=== PATIENT | male | born 1960 | race Caucasian/White ===

== ENCOUNTER 2016-06-09 13:00 | Emergency (ER) | payer MEDICARE ==
[2016-06-09 15:13] VITALS: BP 184/84
--- NOTE | 2016-06-09 15:17 | ERNOTE ---
Trauma/Assault HPI - Narrative Date of Service: 06/09/16 - General Stated Complaint: FALL-HIP AND SHOULDER PAIN Time Seen by Provider: 06/09/16 14:03 Source: patient Exam Limitations: no limitations - Immun/Allergies/Home Medications Immunizations: IMMUNIZATION HX Immunizations Up to Date Yes History of Influenza Vaccine No Allergies/Adverse Reactions: Allergies No Known Allergies Allergy (Verified 06/09/16 13:16) Home Medications: HOME MEDICATIONS Unobtainable 06/09/16 [Last Taken Unknown] - History of Present Illness Narrative: Patient presents to the ED after a fall Wednesday. He relates he fell off a ladder approx. 4 feet. Landed on outstretched right arm. Pain anterior right shoulder. He relates the main reason he came in was for pain anterior right shoulder. He also relates chronic pain right hip since a hip replacement and that this also sustained a direct blow. Pain right hip and right shoulder. Denies other injuries. Relates occasional tingling right arm. No CP or SOB, no abdominal pain. No LOC. Denies other injuries. Location Occurred: Reports: other - patient retired. Pain Location: Reports: other - right shoulder and right hip Method of Injury: Reports: fall Severity: other - moderate at rest Modifying Factors - (Improves): Reports: rest Modifying Factors - (Worsens): Reports: movement Loss of Consciousness: Reports: no loss of consciousness Associated Symptoms - Trauma: Denies: headache, chest pain, shortness of breath , abdominal pain Review of Systems - Review of Systems Constitutional: Absent: fever Respiratory: Absent: shortness of breath Cardiology: Absent: chest pain Gastrointestinal/Abdominal: Absent: abdominal pain Neurological: Absent: weakness - Patient's Past Medical History Patient History - Medical: Anxiety, Chronic Pain, Other Patient History - Cardiac/Respiratory: Hypertension, Sleep Apnea Patient History - Cancer: No Hx of Cancer Patient History - Surgical Procedures: Colonoscopy, Total Hip Replacement Patient History - Other: None - Family History Mother Family History - Cardiac/Respiratory: Myocardial Infarction Father Family History - Medical: No pertinent hx Family History - Cardiac/Respiratory: No pertinent hx - Social History Living Situations: home Abuse History: No History of abuse Psych History: No pertinent hx Alcohol Use: occasionally Drug Use: marijuana - Immunizations Immunizations Up to Date: Yes History of Influenza Vaccine: No Physical Exam - Physical Exam General Appearance: Present: alert, no apparent distress Eye Exam: Normal inspection: bilateral, PERRL: bilateral Ears, Nose, Throat: Present: normal ENT inspection, other - no findings of head injury. Neck: Present: normal inspection, other - There is no tenderness posterior cervical spine. No midline pain or tenderness. Mild muscular tenderness right trapezius . No spinal tendenres or pain.. Absent: tender posterior midline Respiratory: Present: no respiratory distress, normal breath sounds, no accessory muscle use, lungs clear Cardiovascular/Chest: Present: regular rate, rhythm, normal peripheral pulses Peripheral Pulses: N=norm/S=strong/W=weak/B=bound/A=absent: Radial (R): Normal Gastrointestinal/Abdominal: Present: normal bowel sounds, nontender, nondistended, soft. Absent: tenderness Back Exam: Present: normal inspection, normal range of motion, no vertebral tenderness. Absent: vertebral tenderness, decreased range of motion Extremity Exam: Present: other - Tenderness right anterior shoulder. No clinical dislocation. Tenderness lateral right hip. No other bone tenderness noted on extremities. Mild reduced ROM at these sites d/t pain. Neurological Exam: Present: alert, no motor/sensory deficits, ophthalmologist retina specialist II-XII nml as tested, other - Exam somewhat limited by pain. No clear acute focal motor deficits. LT sensation intact. Skin Exam: Present: other - no laceration ED Progress - Vital Signs Patient's Vital Signs:: I have reviewed the patient's vital signs. Vital Signs: Vital Signs 06/09/16 06/09/16 13:12 13:18 Temperature 36.6 C Pulse Rate 56 L 56 L Respiratory 16 Rate Blood Pressure 151/71 O2 Sat by Pulse 99 Oximetry - X-Ray X-Ray #1 X-Ray: shoulder Interpretation: Reviewed by me X-ray Comments: I reviewed radiology report X-Ray #2 X-Ray: hip Interpretation: Reviewed by me X-ray Comments: I reviewed radiology report X-Ray #3 X-Ray: femur Interpretation: Reviewed by me X-ray Comments: I reviewed radiology report - Progress/Reassessment Chief Complaint: Fall Progress Note-Subjective: 06/09/16 15:14 I spoke with Dorothy Wolfe (ortho) regarding x-ray findings. He will see the patientin the office to discuss further testing, this was discussed with the patient. I discussed warning signs and reasons to return as well as the need for close f/u. Departure Clinical Impression: Musculoskeletal pain of extremity, Shoulder injury, Injury of hip - Departure Disposition: Home self-care Condition: Stable Instructions: Musculoskeletal Pain Additional Instructions: Rest. Ice. Call Ortho today for an appointment. I spoke with Cipriano Wolfe by phone today and they wish to see you in the office to discuss if any further evaluation will be necessary. Return for increased pain, numbness, tingling, weakness or if your condition worsens or changes in any way. Referrals: Oliver Herrera MD [Primary Care Provider] -
== END 2016-06-09 15:20 | disposition home or self-care (01) ==
LOC: ER 13:00
DX: M25.511 Pain in right shoulder (principal); S49.91XA Unspecified injury of right shoulder and upper arm, initial encounter; S79.911A Unspecified injury of right hip, initial encounter; W11.XXXA Fall on and from ladder, initial encounter

== ENCOUNTER 2017-02-11 12:45 | Emergency (ER) | payer MEDICARE ==
[2017-02-11 12:53] VITALS: BP 167/88
[2017-02-11] MEDS ORDERED: KETOROLAC TROMETHAMINE 60 MG/2 ML VIAL IM ONE ×2 (13:56→14:08)
[2017-02-11] MEDS ORDERED: ORPHENADRINE CITRATE 30 MG/ML VIAL IM ONE (13:56)
--- NOTE | 2017-02-11 14:00 | ERNOTE ---
Upper Extremity HPI - General Extremities Pain Location: shoulder: right Time Seen by Provider: 02/11/17 13:51 Source: patient Exam Limitations: no limitations - Immun/Allergies/Home Medications Immunizations: IMMUNIZATION HX Immunizations Up to Date Yes History of Influenza Vaccine No Allergies/Adverse Reactions: Allergies Allergy/AdvReac Type Severity Reaction Status Date / Time No Known Allergies Allergy Verified 02/11/17 12:53 Home Medications: HOME MEDICATIONS Cyclobenzaprine HCl [Flexeril] 10 mg PO TID PRN #30 tab 02/11/17 [Last Taken Unknown] Naproxen [Naprosyn] 500 mg PO BID #60 tablet 02/11/17 [Last Taken Unknown] - History of Present Illness Narrative: 2 days ago patient lifted a 5 gallon bucket of paint out of his car and put in his truck and he heard a pop in the right shoulder has had at least moderate pain since then. States that the shoulder was surgically repaired many years ago in [place], however he's been doing fairly well with it since the surgery. Had a previous rotator cuff surgery to that shoulder. Review of Systems - Review of Systems Constitutional: Present: See HPI EYE: Present: no symptoms reported ENT: Present: no symptoms reported Respiratory: Present: no symptoms reported Cardiology: Present: no symptoms reported Gastrointestinal/Abdominal: Present: no symptoms reported Genitourinary: Present: no symptoms reported Musculoskeletal: Present: See HPI, joint pain Skin: Present: no symptoms reported Neurological: Present: no symptoms reported Endocrine: Present: no symptoms reported Hematologic/Lymphatic: Present: no symptoms reported Psych: Present: no symptoms reported - Patient's Past Medical History Patient History - Medical: Anxiety, Chronic Pain, Other Patient History - Cardiac/Respiratory: Hypertension, Sleep Apnea Patient History - Cancer: No Hx of Cancer Patient History - Surgical Procedures: Colonoscopy, Total Hip Replacement, Orthopedic - apparent right rotator cuff Patient History - Other: None - Family History Mother Family History - Cardiac/Respiratory: Myocardial Infarction Father Family History - Medical: No pertinent hx Family History - Cardiac/Respiratory: No pertinent hx - Social History Living Situations: home Abuse History: No History of abuse Psych History: No pertinent hx Alcohol Use: none Drug Use: none - Immunizations Immunizations Up to Date: Yes History of Influenza Vaccine: No Physical Exam - Physical Exam General Appearance: Present: wd/wn, alert, moderate distress Head Exam: Present: normal inspection Eye Exam: Normal inspection: bilateral, PERRL: bilateral Ears, Nose, Throat: Present: normal ENT inspection, H, normal pharynx Neck: Present: normal inspection, nontender Respiratory: Present: no respiratory distress, normal breath sounds, no accessory muscle use, chest nontender, lungs clear Cardiovascular/Chest: Present: regular rate, rhythm, no murmur, normal peripheral pulses Gastrointestinal/Abdominal: Present: normal bowel sounds, nontender, nondistended, soft, no organomegaly Rectal Exam: Present: deferred Back Exam: Present: normal inspection, normal range of motion Extremity Exam: Present: no edema, decreased range of motion, other - while the patient appears to have some internal, external rotation of the right shoulder as well as some abduction, he does so with apparent pain Neurological Exam: Present: alert, oriented, normal mood/affect Skin Exam: Present: normal color, warm/dry Lymphatic Exam: Present: no adenopathy ED Progress - Vital Signs Patient's Vital Signs:: I have reviewed the patient's vital signs. Vital Signs: Vital Signs 02/11/17 12:47 Temperature 36.3 C L Pulse Rate 73 Respiratory 12 Rate Blood Pressure 167/88 O2 Sat by Pulse 95 Oximetry - X-Ray X-Ray #1 X-Ray: shoulder Interpretation: Reviewed by me - Progress/Reassessment Chief Complaint: Shoulder Injury/Pain Plan - Plan Plan: Patient appears to have a rotator cuff strain on the right side. He'll be started on Flexeril and Naprosyn and be given the name of the on-call orthopedist. He was also instructed to follow-up with his family physician. Departure Clinical Impression: Musculoskeletal pain of extremity Shoulder injury Qualifiers: Encounter type: initial encounter Laterality: right Qualified Code(s): S49.91XA - Unspecified injury of right shoulder and upper arm, initial encounter Rotator cuff (capsule) sprain Qualifiers: Encounter type: initial encounter Laterality: right Qualified Code(s): S43.421A - Sprain of right rotator cuff capsule, initial encounter - Departure Disposition: Home self-care Condition: Good Instructions: Rotator Cuff Injury Referrals: You Pimentel DO [Primary Care Provider] - Adiel Sanches MD [Staff Physician] - Prescriptions: Cyclobenzaprine HCl [Flexeril] 10 mg PO TID PRN #30 tab PRN Reason: MUSCLE SPASMS Naproxen [Naprosyn] 500 mg PO BID #60 tablet
[2017-02-11] MEDS ORDERED: ORPHENADRINE CITRATE 30 MG/ML VIAL ONE (14:08)
== END 2017-02-11 15:00 | disposition home or self-care (01) ==
LOC: ER 12:45
DX: M25.511 Pain in right shoulder (principal); S49.91XA Unspecified injury of right shoulder and upper arm, initial encounter; S43.421A Sprain of right rotator cuff capsule, initial encounter; X58.XXXA Exposure to other specified factors, initial encounter; Y93.89 Activity, other specified

== ENCOUNTER 2020-01-31 00:13 | Observation (INO) ==
[2020-01-31] MEDS ORDERED: ONDANSETRON HCL/PF 2 MG/ML VIAL IV ONE ×2 (00:33→01:59)
[2020-01-31] MEDS ORDERED: NORMAL SALINE 1,000 ML IV ONE ×2 (00:34→05:02)
--- NOTE | 2020-01-31 00:38 | ERNOTE ---
Abdominal HPI - General Chief Complaint: Abdominal Pain Time Seen by Provider: 01/31/20 00:29 Source: patient Exam Limitations: no limitations - Immun/Allergies/Home Medications Immunizatons: IMMUNIZATION HX Immunizations Up to Date Yes History of Influenza Vaccine Yes Hx Pneumococcal Vaccination No Allergies/Adverse Reactions: Allergies No Known Allergies Allergy (Verified 07/17/19 14:35) Home Medications: HOME MEDICATIONS Valsartan 320 mg PO DAILY 05/25/17 [Last Taken Unknown] Aspirin [Aspirin EC] 81 mg PO DAILY #60 tablet. 05/26/17 [Last Taken Unknown] Omeprazole [Prilosec] 20 mg PO BID #60 cap 05/26/17 [Last Taken Unknown] Metoprolol Tartrate [Lopressor] 25 mg PO DAILY 01/31/20 [Last Taken Unknown] Rivaroxaban [Xarelto] 2.5 mg PO DAILY 01/31/20 [Last Taken Unknown] - History of Present Illness Narrative: Patient states he has had increasing abdominal pain nausea and vomiting for 2 days. He states he has not been able to hold anything down for that amount of time. He did have laparoscopic cholecystectomy approximately a month ago and then had a skin infection at the operation site but this is been resolved for approximately a week Timing: getting worse Quality: moderate, severe, cramping Activities at Onset: none Modifying Factors - (Worsens): Present: vomiting Prior Treatment: Present: recently seen, treated by physician Review of Systems - Review of Systems Constitutional: Absent: recent illness, fever, chills ENT: Absent: nose congestion, nasal drainage Respiratory: Absent: shortness of breath, cough Cardiology: Absent: chest pain, palpitations Gastrointestinal/Abdominal: Present: See HPI Genitourinary: Absent: dysuria Musculoskeletal: Absent: back pain, muscle pain Skin: Absent: rash Neurological: Absent: dizziness/light-headedness Endocrine: Absent: excessive sweating Medical History (Last Reviewed 01/31/20 @ 00:36 by Dg Olivarez DO) Afib HTN (hypertension) Surgical History: Surgical History (Last Reviewed 01/31/20 @ 00:36 by Dg Olivarez DO) H/O cardiac radiofrequency ablation H/O shoulder surgery right History of hip surgery right Social History: (Last Reviewed 01/31/20 @ 00:36 by Dg Olivarez DO) Tobacco: Smoking Status: Former smoker Alcohol: alcohol intake frequency: holiday/special occasion Substance Use: substance use type: does not use, marijuana Physical Exam - Physical Exam General Appearance: Present: wd/wn, mild distress, lethargic Head Exam: Present: normal inspection, no evidence of injury Neck: Present: normal inspection, nontender, supple Respiratory: Present: no respiratory distress, normal breath sounds, lungs clear Cardiovascular/Chest: Present: regular rate, rhythm, no murmur Gastrointestinal/Abdominal: Present: nondistended, soft, tenderness - Epigastric and right upper quadrant, abnormal bowel sounds - Hypoactive. Absent: guarding, rebound Extremity Exam: Present: normal inspection, normal range of motion, no edema Neurological Exam: Present: alert, oriented, normal mood/affect, no motor/sensory deficits Skin Exam: Present: normal color, warm/dry Lymphatic Exam: Present: no adenopathy Progress - Results and Orders Patient's Lab Results:: I have reviewed the patient's lab results. Results and Orders: Laboratory Tests 01/31/20 01/31/20 01/31/20 00:40 00:40 00:40 WBC 11.2 H Hgb 15.6 Hct 47.0 Plt Count 246 Neutrophils % 78.0 H Sodium 137 Potassium 3.5 Chloride 101 Carbon Dioxide 27.5 BUN 20 D Creatinine 1.14 Random Glucose 184 H Lactic Acid, Venous 2.1 H Calcium 9.1 Total Bilirubin 0.5 AST 19 ALT 28 Amylase 35 Lipase 78 - Vital Signs Patient's Vital Signs:: I have reviewed the patient's vital signs. Vital Signs: Vital Signs 01/31/20 00:19 Temperature 36.0 C Pulse Rate 52 L Respiratory Rate 14 Blood Pressure 209/79 H O2 Sat by Pulse Oximetry 98 - Progress/Reassessment Chief Complaint: Abdominal Pain Progress Note-Subjective: 01/31/20 01:09 Patient has mildly elevated lactic acid but does not meet SIRS criteria so he does not meet sepsis criteria 01/31/20 04:17 Spoke with the patient about CT scan results and suggested admission for bowel rest and IV fluids patient agreed. Patient was feeling somewhat nauseous but did not want any further anti-nausea medications at this time. I spoke with Dr. Lee she agrees with admission NG tube n.p.o. and IV fluids. We will consult surgery in the morning 01/31/20 04:19 01/31/20 04:39 Patient initially did not tolerate NG tube placement Cetacaine spray will be used for comfort. patient is agreeable to trying again with Cetacaine spray. Departure Clinical Impression: Small bowel obstruction - Departure Disposition: Still a patient Condition: Fair
[2020-01-31 00:46] LABS: Hemoglobin 15.6 gm/dL (13.5-18.0); Mean Cell Volume 92.9 fl (78-100); Mean Corpuscular Hemoglobin 30.8 pg (27-31); Mean Corpuscular Hgb Conc 33.2 g/dl (32-36); Mean Platelet Volume 9.5 fl (8-11.3); Neutrophil # 8.7 K/mm3 (1.3-6.0); Platelet Count 246 K/mm3 (150-450); Red Blood Count 5.06 M/mm3 (4.7-6.0); Red Cell Distribution Width 12.1 % (11.5-14.0); White Blood Count 11.2 K/mm3 (4.0-10.5)
[2020-01-31 00:59] LABS: Albumin * 3.9 gm/dl (3.4-5.0); BUN/Creatinine Ratio 17.5 (9.0-21.6); Bilirubin, Total 0.5 mg/dL (0.0-1.1); Ca. Corrected For Albumin 8.9 mg/dL (8.4-10.2); Calcium * 9.1 mg/dL (7.9-10.9); Carbon Dioxide 27.5 mmol/L (24-32.6); Potassium 3.5 mmol/L (3.4-4.6); Total Protein 7.3 gm/dL (6.2-8.2)
[2020-01-31] MEDS ORDERED: DIATRIZOATE MEGLUMINE, SODIUM 30 ML BTL PO ONE (01:27)
[2020-01-31 04:14] LABS: Urine Bilirubin Negative (NEGATIVE); Urine Blood Negative /ul (NEGATIVE); Urine Ketone Negative (NEGATIVE); Urine Nitrite Negative (NEGATIVE); Urine Protein Negative (NEGATIVE); Urine Urobilinogen Normal (NORMAL)
[2020-01-31 04:34] LABS: Urine Appearance Clear (CLEAR); Urine Color Yellow
[2020-01-31] MEDS ORDERED: TETRACAINE/BENZOCAINE/BUTAMBEN 56 SPRAY BTL TP ONE (04:34)
[2020-01-31 04:35] LABS: Urine Bacteria None Seen; Urine RBC None Seen /hpf (0-5); Urine WBC None Seen /hpf (0-5)
[2020-01-31] MEDS ORDERED: TETRACAINE/BENZOCAINE/BUTAMBEN 20 SPRAY BTL TP PRN (04:46)
[2020-01-31] MEDS ORDERED: PROCHLORPERAZINE EDISYLATE 5 MG/ML VIAL IV PRN (05:02)
[2020-01-31] MEDS ORDERED: KETOROLAC TROMETHAMINE 15 MG/ML VIAL IV ONE (05:47)
[2020-01-31] MEDS: LISINOPRIL 40 MG TABLET PO SCH (10:51)
[2020-01-31] MEDS: METOPROLOL TARTRATE 25 MG TABLET PO SCH ×2 (10:52→20:30)
--- NOTE | 2020-01-31 11:10 | HP ---
Chief Complaint - Chief Complaint Date of Service: 01/31/20 Time of Service: 10:37 Chief Complaint: Nausea, vomiting and abdominal pain x2 days History of Present Illness: 59-year-old male with a past medical history of atrial fibrillation on anticoagulation, hypertension, cholecystectomy presents from home with complaints of nausea, vomiting and upper abdominal pain for the past 2 days. He was found to have hypertension of 209/79, lactic acid 2.1, mild leukocytosis at 11.2, abdominal x-ray showed nonobstructive bowel gas pattern, no free air. CT abdomen pelvis was positive for developing small bowel obstruction versus posto perative ileus, no pneumatosis or portal venous gas, no free air, no evidence of appendicitis, no evidence of abscess. Chest x-ray showed satisfactory positioning of the enteric tube. He was admitted for small bowel obstruction and NG tube was placed. Medical History (Last Reviewed 01/31/20 @ 07:14 by Tatyana Shrestha RN) Afib HTN (hypertension) Surgical History: Surgical History (Last Reviewed 01/31/20 @ 07:15 by Tatyana Shrestha RN) Cholecystectomy planned H/O cardiac radiofrequency ablation H/O shoulder surgery right History of hip surgery right Family History: Family History (Last Updated 01/31/20 @ 15:12 by Geeta Boothe MD) Other Family history non-contributory Social History: (Last Reviewed 01/31/20 @ 07:15 by Tatyana Shrestha RN) Tobacco: Smoking Status: Former smoker Alcohol: alcohol intake frequency: holiday/special occasion Substance Use: substance use type: does not use, marijuana Review Of Systems (GEN) - Review of Systems Generalized/Overall Review: Absent: Fever EENTM: Present: Throat Pain Respiratory: Absent: Shortness of Breath Cardiac: Absent: Chest Pain Abdominal: Absent: Nausea, Vomiting, Abdominal Pain Misc: All systems neg except as marked Immunizations: IMMUNIZATION HX Immunizations Up to Date Yes History of Influenza Vaccine Yes Hx Pneumococcal Vaccination No Allergies/Adverse Reactions: Allergies Allergy/AdvReac Type Severity Reaction Status Date / Time No Known Allergies Allergy Verified 07/17/19 14:35 Home Medications: HOME MEDICATIONS Aspirin [Aspirin EC] 81 mg PO DAILY #60 tablet. 05/26/17 [Last Taken Unknown] Lisinopril [Zestril] 40 mg PO DAILY 01/31/20 [Last Taken Unknown] Metoprolol Tartrate [Lopressor] 25 mg PO BID 01/31/20 [Last Taken Unknown] Omeprazole 40 mg PO DAILY 01/31/20 [Last Taken Unknown] Rivaroxaban [Xarelto] 2.5 mg PO HS 01/31/20 [Last Taken Unknown] Exam - Exam Vital Signs: Vital Signs - Last Taken Temp 36.8 C 01/31/20 10:22 Pulse 65 01/31/20 10:52 Resp 14 01/31/20 10:22 BP 188/88 H 01/31/20 10:52 Pulse Ox 96 01/31/20 10:22 Constitutional: Present: Alert, Well developed, Well nourished, No distress, Middle aged, Obese ENT Exam: Present: hearing grossly normal Eye Exam: bilateral eye: normal inspection Neck: Present: non-tender, supple, normal inspection. Absent: lymphadenopathy ( R), lymphadenopathy (L) Back Exam: Present: normal inspection, no CVA tenderness, no vertebral tenderness Respiratory: Present: lungs clear, no respiratory distress, no accessory muscle use. Absent: crackles, rhonchi, wheezing Cardiovascular/Chest: Present: normal peripheral pulses, regular rate, rhythm, no edema, no murmur Peripheral Pulses: dorsalis-pedis (R): 1+, dorsalis-pedis (L): 1+ Abdomen: Present: Normal bowel sounds, soft, nontender Extremity: Present: no pedal edema Skin Exam: Present: normal color, warm/dry Neurologic: Present: alert, normal mood/affect Appearance: Present: appropriate appearance, appropriate insight Eye contact: Present: cooperative Thoughts: Present: normal thought pattern, normal mood /affect Diagnostic Studies: Abnormal Lab Results 01/31/20 01/31/20 01/31/20 Range/Units 00:40 00:40 00:40 WBC 11.2 H (4.0-10.5) K/mm3 Immature Gran # (Auto) 0.05 H (0.000-0.0310) K/mm3 Neutrophils % 78.0 H (42-75.0) % Lymphocytes % 13.9 L (20-51) % Neutrophils # 8.7 H (1.3-6.0) K/mm3 Random Glucose 184 H (70-110) mg/dL Lactic Acid, Venous 2.1 H (0.4-2.0) mmol/L 01/31/20 Range/Units 03:35 WBC (4.0-10.5) K/mm3 Immature Gran # (Auto) (0.000-0.0310) K/mm3 Neutrophils % (42-75.0) % Lymphocytes % (20-51) % Neutrophils # (1.3-6.0) K/mm3 Random Glucose (70-110) mg/dL Lactic Acid, Venous 2.7 H* (0.4-2.0) mmol/L Laboratory Results WBC 11.2 K/mm3 (4.0-10.5) H 01/31/20 00:40 RBC 5.06 M/mm3 (4.7-6.0) 01/31/20 00:40 Hgb 15.6 gm/dL (13.5-18.0) 01/31/20 00:40 Hct 47.0 % (42.0-52.0) 01/31/20 00:40 MCV 92.9 fl (78-100) 01/31/20 00:40 MCH 30.8 pg (27-31) 01/31/20 00:40 MCHC 33.2 g/dl (32-36) 01/31/20 00:40 RDW 12.1 % (11.5-14.0) 01/31/20 00:40 Plt Count 246 K/mm3 (150-450) 01/31/20 00:40 MPV 9.5 fl (8-11.3) 01/31/20 00:40 Immature Gran % (Auto) 0.40 % (0.001-0.429) 01/31/20 00:40 Immature Gran # (Auto) 0.05 K/mm3 (0.000-0.0310) H 01/31/20 00:40 Neutrophils % 78.0 % (42-75.0) H 01/31/20 00:40 Lymphocytes % 13.9 % (20-51) L 01/31/20 00:40 Monocytes % 5.2 % (0.0-9) 01/31/20 00:40 Eosinophils % 2.1 % (0.0-3.0) 01/31/20 00:40 Basophils % 0.4 % (0.0-1.0) 01/31/20 00:40 Nucleated RBC % 0.0 k/mm3 (0-1) 01/31/20 00:40 Neutrophils # 8.7 K/mm3 (1.3-6.0) H 01/31/20 00:40 Lymphocytes # 1.56 k/mm3 (1.5-3.5) 01/31/20 00:40 Monocytes # 0.6 k/mm3 (0.0-1.0) 01/31/20 00:40 Eosinophils # 0.2 k/mm3 (0.0-0.7) 01/31/20 00:40 Absolute Basophils 0.1 k/mm3 (0.0-0.1) 01/31/20 00:40 Sodium 137 mmol/L (132-142) 01/31/20 00:40 Plasma Sodium 138 mmol/L (130-142) 01/31/20 00:40 Potassium 3.5 mmol/L (3.4-4.6) 01/31/20 00:40 Chloride 101 mmol/L (97-106) 01/31/20 00:40 Carbon Dioxide 27.5 mmol/L (24-32.6) 01/31/20 00:40 Anion Gap 12.0 mmol/L (6.8-13.8) 01/31/20 00:40 BUN 20 mg/dL (6-23) D 01/31/20 00:40 Creatinine 1.14 mg/dL (0.4-1.4) 01/31/20 00:40 Est GFR (Non-Af Amer) 69 mL/min (60-130) 01/31/20 00:40 BUN/Creatinine Ratio 17.5 (9.0-21.6) 01/31/20 00:40 Random Glucose 184 mg/dL (70-110) H 01/31/20 00:40 Lactic Acid, Venous 2.7 mmol/L (0.4-2.0) H* 01/31/20 03:35 Calcium 9.1 mg/dL (7.9-10.9) 01/31/20 00:40 Calcium Adj for Albumin 8.9 mg/dL (8.4-10.2) 01/31/20 00:40 Total Bilirubin 0.5 mg/dL (0.0-1.1) 01/31/20 00:40 AST 19 U/L (0-48) 01/31/20 00:40 ALT 28 U/L (19-67) 01/31/20 00:40 Alkaline Phosphatase 64 U/L (50-170) 01/31/20 00:40 Total Protein 7.3 gm/dL (6.2-8.2) 01/31/20 00:40 Albumin 3.9 gm/dl (3.4-5.0) 01/31/20 00:40 Amylase 35 U/L (25-115) 01/31/20 00:40 Lipase 78 U/L (73-393) 01/31/20 00:40 Urine Color Yellow 01/31/20 04:10 Urine Appearance Clear (CLEAR) 01/31/20 04:10 Urine pH 7.0 pH (5.0-7.0) 01/31/20 04:10 Ur Specific [place] 1.010 SP.GR. (1.005-1.030) 01/31/20 04:10 Urine Protein Negative mg/dL (NEGATIVE) 01/31/20 04:10 Urine Glucose (UA) Negative mg/dL (NEGATIVE) 01/31/20 04:10 Urine Ketones Negative mg/dL (NEGATIVE) 01/31/20 04:10 Urine Blood Negative /ul (NEGATIVE) 01/31/20 04:10 Urine Nitrate Negative (NEGATIVE) 01/31/20 04:10 Urine Bilirubin Negative mg/dl (NEGATIVE) 01/31/20 04:10 Urine Urobilinogen Normal EU/dl (NORMAL) 01/31/20 04:10 Ur Leukocyte Esterase Negative /ul (NEGATIVE) 01/31/20 04:10 Urine RBC None seen /hpf (0-5) 01/31/20 04:10 Urine WBC None seen /hpf (0-5) 01/31/20 04:10 Ur Epithelial Cells None seen /hpf (0-5) 01/31/20 04:10 Urine Bacteria None seen (NONE) 01/31/20 04:10 Urine Culture Comments No culture indicated 01/31/20 04:10 Assessment/Plan - Narrative Narrative: 59-year-old male with a past medical history of atrial fibrillation on anticoagulation, hypertension, cholecystectomy presents from home with compl aints of nausea, vomiting and upper abdominal pain for the past 2 days. He was found to have hypertension of 209/79, lactic acid 2.1, mild leukocytosis at 11.2, abdominal x-ray showed nonobstructive bowel gas pattern, no free air. CT abdomen pelvis was positive for developing small bowel obstruction versus postoperative ileus, no pneumatosis or portal venous gas, no free air, no evidence of appendicitis, no evidence of abscess. Chest x-ray showed satisfactory positioning of the enteric tube. He was admitted for small bowel obstruction and NG tube was placed. Patient states he feels much better and denies nausea or abdominal pain. He complains that the NG tube is giving him a sore throat and is very uncomfortable. He would like it to be taken out. Plan #1 continue with NG tube, clamp for 1 hour to give him his blood pressure medications through the NG tube #2 surgery consulted #3 remain n.p.o. #4 abdominal flat and upright x-ray per Dr. Rivas request Patient is doing well and denies nausea, vomiting or abdominal pain. Abdominal x-ray shows contrast in the distal small bowel and into the colon. I will pull the NG tube and advance him to a clear liquid diet. Start his medications, stop IV fluids. Obtain CBC and CMP in the morning. - Assessment/Plan (1) Small bowel obstruction Problem: Acute (2) A-fib Problem: Acute Qualifiers: Atrial fibrillation type: unspecified chronic Qualified Code(s): I48.20 - Chronic atrial fibrillation, unspecified (3) Hypertension Problem: Acute Qualifiers: Hypertension type: essential hypertension Qualified Code(s): I10 - Essential (primary) hypertension
[2020-01-31] MEDS: ACETAMINOPHEN 500 MG TABLET PO PRN ×2 (15:18→19:32)
[2020-01-31] MEDS: ASPIRIN 81 MG TABLET.DR PO SCH (15:18)
[2020-01-31] MEDS ORDERED: BISACODYL 5 MG TABLET.DR PO ONE (16:43)
--- NOTE | 2020-01-31 16:59 | CONS ---
HPI - General Date of Service: 01/31/20 Source: patient, RN/MD, RN notes reviewed, old records Exam Limitations: no limitations - History of Present Illness Initial Comments: His abdomen apparently started feeling different on 01/27/2020. On Wednesday he was watching games and only ate junk food. He did not move his bowels Wednesday or Wednesday and on Wednesday the felt very bloated. On Wednesday he went to the bathroom to have a bowel movement thinking that would help. He had a small bowel movement, but it did not relieve the bloating. Then later on his abdomen "was on fire" And he started vomiting. He told his to bring him to the emergency room. He was found to have a mildly elevated white blood cell count and elevated lactic acid. Initial abdominal x-ray showed a nonobstructive bowel pattern, there was a fair amount of stool. CT scan of the abdomen and pelvis showed dilated proximal small bowel and smaller caliber distal small bowel suggesting possible ileus or developing obstruction. He was admitted. Nasogastric tube was placed with return of a large amount of green material. He stated he felt immediately better. A repeat flat and upright abdominal x-ray revealed passage of contrast into the colon. The NG tube was clamped for medication, which he tolerated. It was then removed, and he has tolerated clear liquids. Currently he states his abdomen is pain-free. It is no longer distended. He has not passed gas or moved his bowels even after the CT contrast. He states he is very hungry and wants to try real food His recent history is remarkable for a laparoscopic cholecystectomy performed at [facility] on 12/12/2019. Apparently after that he developed drainage of purulent material from the subxiphoid port. That has now resolved Allergies/Adverse Reactions: Allergies No Known Allergies Allergy (Verified 07/17/19 14:35) Home Medications: Home Medications Medication Instructions Recorded Last Taken Aspirin [Aspirin EC] 81 mg PO DAILY #60 tablet. 05/26/17 Unknown Lisinopril [Zestril] 40 mg PO DAILY 01/31/20 Unknown Metoprolol Tartrate [Lopressor] 25 mg PO BID 01/31/20 Unknown Omeprazole 40 mg PO DAILY 01/31/20 Unknown Rivaroxaban [Xarelto] 20 mg PO DAILY 01/31/20 Unknown Procedures Contrast arthrogram (02/10/08) Endoscopic polypectomy of large intestine (02/07/08) Excision of Left Ulna, Open Approach (01/03/16) Excision of hemorrhoids (02/07/08) Introduction of Anti-inflammatory into Joints, Percutaneous Approach (12/16/15) Introduction of Local Anesthetic into Joints, Percutaneous Approach (12/16/15) Other local excision or destruction of lesion or tissue of anus (02/07/08) Total hip replacement (05/08/13) Medications - Medications Current Medications: Current Medications Acetaminophen (Tylenol) 500 mg PO Q4H PRN PRN Reason: Mild pain (pain scale 1-3) Stop: 03/01/20 15:10 Last Admin: 01/31/20 15:18 Dose: 500 mg Documented by: Aspirin (Aspirin Enteric Coated) 81 mg PO DAILY KRYS Stop: 03/01/20 15:16 Last Admin: 01/31/20 15:18 Dose: 81 mg Documented by: Benzocaine/Butamben/Tetracaine HCl (Cetacaine) 1 spray TP PRN PRN PRN Reason: Pain Stop: 03/01/20 04:47 Last Admin: 01/31/20 08:20 Dose: 1 spray Documented by: Lisinopril (Zestril) 40 mg PO DAILY KRYS Stop: 03/01/20 10:31 Last Admin: 01/31/20 10:51 Dose: 40 mg Documented by: Metoprolol Tartrate (Lopressor) 25 mg PO BID KRYS Stop: 03/01/20 10:31 Last Admin: 01/31/20 10:52 Dose: 25 mg Documented by: Prochlorperazine Edisylate (Compazine) 5 mg IV Q6H PRN PRN Reason: Nausea Stop: 03/01/20 05:03 Last Admin: 01/31/20 05:40 Dose: 5 mg Documented by: Review of Systems - Review of Systems Generalized/Overall Review: Absent: Chills, Fever EENTM: Present: No Symptoms Reported, Other - Insert is sore from the nasogastric tube Respiratory: Absent: Cough, Shortness of Breath Cardiac: Absent: Chest Pain Abdominal: Present: Other - He has not passed gas or moved his bowels today. Absent: Nausea, Abdominal Pain Genitourinary: Present: No Symptoms Reported Musculoskeletal: Present: No Symptoms Reported Neurological: Present: Headache - He complains of a headache because of elevated blood pressure. No associated neurologic symptoms Skin: Present: No Symptoms Reported Endocrine: Present: No Symptoms Reported Physical Examination - Exam Vital Signs: Vital Signs - Last Taken Temp 36.4 C 01/31/20 13:46 Pulse 62 01/31/20 13:46 Resp 16 01/31/20 13:46 BP 163/74 H 01/31/20 13:46 Pulse Ox 97 01/31/20 13:46 O2 Oxygen Delivery Method Room Air Constitutional: Present: Alert, Oriented x3, Cooperative, No distress, Obese ENT Exam: Present: normal ENT inspection - Plethoric complexion Eye Exam: bilateral eye: normal inspection Neck: Present: full range of motion, normal inspection Respiratory: Present: no respiratory distress Cardiovascular/Chest: Present: regular rate, rhythm Abdomen: Present: soft, nontender, nondistended, other - He has a scab on the subxiphoid port site /Rectal: Present: Exam deferred Extremity: Present: normal range of motion Skin Exam: Present: other - Plethoric complexion Neurologic: 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: 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 II-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 nml as tested, normal cerebellar test, no motor/sensory deficits, alert, normal mood/affect, oriented x 3 Appearance: Present: appropriate appearance, appropriate insight, no memory impairment Eye contact: Present: cooperative, good eye contact, normal speech Thoughts: Present: normal thought pattern - Results and Findings: Lab/Microbiology results last 24 hrs: Abnormal/Pending Laboratory Last 24 HRS 01/31/20 01/31/20 01/31/20 15:28 03:35 00:40 WBC Immature Gran # (Auto) Neutrophils % Lymphocytes % Neutrophils # Random Glucose Lactic Acid, Venous 3.3 H* 2.7 H* 2.1 H 01/31/20 01/31/20 00:40 00:40 WBC 11.2 H Immature Gran # (Auto) 0.05 H Neutrophils % 78.0 H Lymphocytes % 13.9 L Neutrophils # 8.7 H Random Glucose 184 H Lactic Acid, Venous CT scan images and report reviewed. Recent flat and upright abdominal images and report reviewed. - Assessments/Findings (1) Small bowel obstruction Diagnosis(s): His presenting symptoms have resolved. His abdominal x-ray does show passage of contrast into the colon indicating that there is no longer small bowel obstruction. He has not had a bowel movement since the contrast administration however. He did tolerate clear liquids and states he is very hungry. The etiology of the abdominal distention and vomiting is unclear, as is the elevated lactic acid. Repeat laboratory studies have been ordered for tomorrow morning. Recommendation: Will administer Dulcolax p.o. and advance diet. Problem: Acute
[2020-01-31] MEDS ORDERED: RIVAROXABAN 20 MG TABLET PO SCH (21:00)
[2020-02-01 06:11] LABS: Hematocrit 44.5 % (42.0-52.0); Hemoglobin 14.5 gm/dL (13.5-18.0); Mean Cell Volume 93.9 fl (78-100); Mean Corpuscular Hemoglobin 30.6 pg (27-31); Mean Corpuscular Hgb Conc 32.6 g/dl (32-36); Mean Platelet Volume 9.4 fl (8-11.3); Neutrophil # 4.7 K/mm3 (1.3-6.0); Neutrophil % 56.7 % (42-75.0); Platelet Count 234 K/mm3 (150-450); Red Blood Count 4.74 M/mm3 (4.7-6.0); Red Cell Distribution Width 12.1 % (11.5-14.0); White Blood Count 8.2 K/mm3 (4.0-10.5)
[2020-02-01 06:40] LABS: Albumin * 3.4 gm/dl (3.4-5.0); Anion Gap 14.1 mmol/L (6.8-13.8); Bilirubin, Total 0.4 mg/dL (0.0-1.1); Ca. Corrected For Albumin 8.8 mg/dL (8.4-10.2); Calcium * 8.6 mg/dL (7.9-10.9); Carbon Dioxide 26.1 mmol/L (24-32.6); Potassium 4.2 mmol/L (3.4-4.6); Total Protein 6.4 gm/dL (6.2-8.2)
[2020-02-01 06:49] LABS: BUN/Creatinine Ratio 11.4 (9.0-21.6)
[2020-02-01] MEDS ORDERED: PANTOPRAZOLE SODIUM 40 MG TABLET.EC PO SCH (07:00)
[2020-02-01] MEDS: LISINOPRIL 40 MG TABLET PO SCH (08:09)
[2020-02-01] MEDS: METOPROLOL TARTRATE 25 MG TABLET PO SCH (08:09)
[2020-02-01] MEDS: ASPIRIN 81 MG TABLET.DR PO SCH (08:09)
--- NOTE | 2020-02-01 10:07 | DS ---
(1) Small bowel obstruction Problem: Acute (2) A-fib Problem: Chronic Qualifiers: Atrial fibrillation type: unspecified chronic Qualified Code(s): I48.20 - Chronic atrial fibrillation, unspecified (3) Hypertension Problem: Acute Qualifiers: Hypertension type: essential hypertension Qualified Code(s): I10 - Essential (primary) hypertension Hospital Course: 59-year-old male with a past medical history of atrial fibrillation on anticoagulation, hypertension, cholecystectomy presents from home with complaints of nausea, vomiting and upper abdominal pain for the past 2 days. He was found to have hypertension of 209/79, lactic acid 2.1, mild leukocytosis at 11.2, abdominal x-ray showed nonobstructive bowel gas pattern, no free air. CT abdomen pelvis was positive for developing small bowel obstruction versus postoperative ileus, no pneumatosis or portal venous gas, no free air, no evidence of appendicitis, no evidence of abscess. Chest x-ray showed satisfactory positioning of the enteric tube. He was admitted for small bowel obstruction and NG tube was placed. Patient is doing well and denies nausea, vomiting or abdominal pain. Repeat abdominal x-ray showed contrast in the distal small bowel and into the colon. NG tube was clamped for 3 hours and the patient did not develop any nausea v omiting or abdominal pain. The NG tube was pulled yesterday and he was advanced to a clear liquid diet then to a regular diet. He did well with oral intake. He was given some Dulcolax and subsequently had 5-6 bowel movements. He is stable to be discharged home today and will follow-up with me in the next 1 week. Procedures Performed: none Results and Findings: Lab Pending Results 01/31/20 00:40: WBC 11.2 H, RBC 5.06, Hgb 15.6, Hct 47.0, MCV 92.9, MCH 30.8, MCHC 33.2, RDW 12.1, Plt Count 246, MPV 9.5, Immature Gran % (Auto) 0.40, Immature Gran # (Auto) 0.05 H, Neutrophils % 78.0 H, Lymphocytes % 13.9 L, Monocytes % 5.2, Eosinophils % 2.1, Basophils % 0.4, Nucleated RBC % 0.0, Neutrophils # 8.7 H, Lymphocytes # 1.56, Monocytes # 0.6, Eosinophils # 0.2, Absolute Basophils 0.1 01/31/20 00:40: Sodium 137, Plasma Sodium 138, Potassium 3.5, Chloride 101, Carbon Dioxide 27.5, Anion Gap 12.0, BUN 20 D, Creatinine 1.14, Est GFR (Non-Af Amer) 69, BUN/Creatinine Ratio 17.5, Random Glucose 184 H, Calcium 9.1, Calcium Adj for Albumin 8.9, Total Bilirubin 0.5, AST 19, ALT 28, Alkaline Phosphatase 64, Total Protein 7.3, Albumin 3.9, Amylase 35, Lipase 78 01/31/20 00:40: Lactic Acid, Venous 2.1 H 01/31/20 03:35: Lactic Acid, Venous 2.7 H* 01/31/20 04:10: Urine Color Yellow, Urine Appearance Clear, Urine pH 7.0, Ur Specific [place] 1.010, Urine Protein Negative, Urine Glucose (UA) Negative, Urine Ketones Negative, Urine Blood Negative, Urine Nitrate Negative, Urine Bilirubin Negative, Urine Urobilinogen Normal, Ur Leukocyte Esterase Negative, Urine RBC None seen, Urine WBC None seen, Ur Epithelial Cells None seen, Urine Bacteria None seen, Urine Culture Comments No culture indicated 01/31/20 15:28: Lactic Acid, Venous 3.3 H* 02/01/20 06:10: WBC 8.2 D, RBC 4.74, Hgb 14.5, Hct 44.5, MCV 93.9, MCH 30.6, MCHC 32.6, RDW 12.1, Plt Count 234, MPV 9.4, Immature Gran % (Auto) 0.50 H, Immature Gran # (Auto) 0.04 H, Neutrophils % 56.7, Lymphocytes % 30.2, Monocytes % 8.6, Eosinophils % 3.4 H, Basophils % 0.6, Nucleated RBC % 0.0, Neutrophils # 4.7, Lymphocytes # 2.49, Monocytes # 0.7, Eosinophils # 0.3, Absolute Basophils 0.1 02/01/20 06:10: Sodium 142, Plasma Sodium 142, Potassium 4.2, Chloride 106, Carbon Dioxide 26.1, Anion Gap 14.1 H, BUN 12, Creatinine 1.05, Est GFR (Non-Af Amer) 76, BUN/Creatinine Ratio 11.4, Random Glucose 116 H D, Calcium 8.6, Calcium Adj for Albumin 8.8, Total Bilirubin 0.4, AST 18, ALT 26, Alkaline Phosphatase 56, Total Protein 6.4, Albumin 3.4 Discharge Location: Home Disposition: Home self-care Condition: Fair Discharge Activity: Activity as tolerated Discharge Diet: General/regular food Additional Patient Instructions (free text): Follow up with Dr. Boothe on 02-08-2020 at 2:30pm. Complete Home Medications List: Complete Home Medication List: Aspirin [Aspirin EC] 81 mg PO DAILY #60 tablet. 05/26/17 Lisinopril [Zestril] 40 mg PO DAILY 01/31/20 Metoprolol Tartrate [Lopressor] 25 mg PO BID 01/31/20 Omeprazole 40 mg PO DAILY 01/31/20 Rivaroxaban [Xarelto] 20 mg PO DAILY 01/31/20 Forms: Patient Portal Registration
[2020-02-01 10:43] VITALS: BP 125/70
== END 2020-02-01 11:28 | disposition home or self-care (01) ==
LOC: ER 00:13 → MS 00:13
PROVIDERS: ADMIT Internal Medicine; ATTEND Internal Medicine

== ENCOUNTER 2020-07-30 06:31 | Observation (INO) ==
[~2020-07-30 06:31] MED LIST: MORPHINE SULFATE 15 MG TABLET.SA PO PRN; ROPIVACAINE/CLONIDIN/KETOROLAC 50 ML SYRINGE IJ PRN; TRANEXAMIC ACID 1,000 MG in NORMAL SALINE 100 ML IV PRN; ceFAZolin SODIUM 1 GM VIAL IV PRN
[2020-07-30] MEDS ORDERED: PROPOFOL VIAL IV ONE (06:37)
[2020-07-30] MEDS ORDERED: MIDAZOLAM HCL/PF 5 MG/ML VIAL ONE (06:37)
[2020-07-30] MEDS ORDERED: BUPIVACAINE HCL/PF 10 ML VIAL ONE (06:37)
[2020-07-30] MEDS: RINGER'S SOLUTION,LACTATED 1,000 ML IV PRN ×2 (07:04→09:15)
--- NOTE | 2020-07-30 07:28 | ANES ---
Anesthesia Pre Procedure Eval Vitals/Labs: Last Vital Signs Temp 35.9 C L 07/30/20 06:35 Pulse 69 07/30/20 06:35 Resp 18 07/30/20 06:35 BP 144/63 07/30/20 06:35 Pulse Ox 97 07/30/20 06:35 HOME MEDICATIONS acetaminophen 325 mg tablet 650 mg PO Q6H PRN tab 05/15/20 [Last Taken Unknown] metoprolol tartrate 25 mg tablet 25 mg PO DAILY tab 05/15/20 [Last Taken Unknown] famotidine 40 mg tablet 40 mg PO DAILY #30 tab 06/12/20 [Last Taken Unknown] Aspirin 325 mg PO DAILY 07/30/20 [Last Taken Unknown] Allergies/Adverse Reactions: Allergies Allergy/AdvReac Type Severity Reaction Status Date / Time No Known Allergies Allergy Verified 07/30/20 06:48 - Planned Procedure Planned Procedure: Left Arthroplasty Total Hip Medication List Reviewed:: Yes Allergies Verified: Yes Medical History (Last Reviewed 07/30/20 @ 07:24 by Finesse Phipps CRNA) Afib HTN (hypertension) Surgical History (Last Reviewed 07/30/20 @ 07:24 by Finesse Phipps CRNA) H/O cardiac radiofrequency ablation H/O shoulder surgery right x 2 History of hip surgery right [facility]-Dr. Sanches Hx of cholecystectomy Family History (Last Reviewed 07/30/20 @ 07:25 by Finesse Phipps CRNA) Other Family history non-contributory - Family Anesthesia History Family History:: no untoward family reactions to anesthesia, no familial bleeding tendencies, no family history of clotting disorders, no family history of premature - Airway/Neck/Teeth Within Normal Limits:: Yes Teeth Condition: intact Neck Exam: full range of motion Mallampatti Score: 2 Thyromental (T-M) distance: > 6 cm Mandibulo Hyoid distance: > 3 cm - Respiratory Respiratory Physical: lungs clear Smoking Status: Former smoker - quit 40 years Sleep Apnea currently treated: No Sleep Apnea by current assessment: No - Cardiovascular Cardiac History: arrhythmia - afib, hypertension Tolerate Activity: Fair Heart Sounds: S1 & S2, Regular - Anesthesia Assessment and Plan ASA Class: PS, II Anesthesia Type Plan: Spinal
[2020-07-30] MEDS ORDERED: ceFAZolin SODIUM 1 GM VIAL ONE (07:30)
[2020-07-30] MEDS ORDERED: ROPIVACAINE/CLONIDIN/KETOROLAC 50 ML SYRINGE IJ ONE (07:30)
[2020-07-30] MEDS ORDERED: ISOPROPYL ALCOHOL 480 APPL BTL MC ONE (07:30)
[2020-07-30] MEDS ORDERED: DEXTROSE 5%-LACTATED RINGERS 1,000 ML IV PRN (10:21)
[2020-07-30] MEDS ORDERED: ACETAMINOPHEN 500 MG TABLET PO PRN (10:21)
[2020-07-30] MEDS ORDERED: ZOLPIDEM TARTRATE 5 MG TABLET PO PRN (10:21)
[2020-07-30] MEDS ORDERED: MAGNESIUM HYDROXIDE 30 ML UDC PO PRN (10:21)
[2020-07-30] MEDS ORDERED: diphenhydrAMINE HCL 50 MG/ML VIAL IV PRN (10:21)
[2020-07-30] MEDS ORDERED: ONDANSETRON HCL/PF 2 MG/ML VIAL IV PRN (10:21)
[2020-07-30] MEDS ORDERED: MAG HYDROX/ALUMINUM HYD/SIMETH 30 ML UDC PO PRN (10:21)
--- NOTE | 2020-07-30 10:21 | OR ---
Operative Report - Dictated Report Narrative: Date: 07/30/2020 Preoperative diagnosis: Left hip degenerative joint disease. Postoperative diagnosis: Left hip degenerative joint disease. Procedure: Left total hip arthroplasty. Surgeon: Adiel Sanches M.D. Maintenance Shop Laborer: Cipriano Wolfe PA-C (provided an essential set of skilled, educated and assisted with transfer, positioning, prepping, draping, manipulation, traction, irrigation, suturing, and placement of dressings all of which cannot be performed by the available surgical crew) Anesthesia: Spinal and local periarticular joint injection. Complications: None Specimens: Bone. Estimated blood loss: 150 milliliters. Retained implants: Depuy [place] size 5 femoral stem high offset. Size 52 millimeter outside diameter 3-hole Morrow Gription acetabular cup. 52 millimeter outside by 32 millimeter inside diameter highly cross-linked acetabular liner. 32 millimeter diameter + 5 millimeter cobalt chromium femoral head. Cancellous 6.5mm screw 30 millimeter length Indications: Mr. Looney is a 60-year-old gentleman who has had left hip pain and arthrosis for an extent amount of time. This patient was followed in my clinic for period of time with significant complaints of left hip pain consistent with arthritic changes. He failed conservative measures including but not limited to activity modification, passage of time, medications, and other conservative measures. Patient wished to proceed with surgical treatment. The risks, benefits, and alternatives were discussed in clinic. The risks of , blood clots, bleeding, infection, nerve/tendon blood vessel/ injury, malposition of components, dislocation and/or instability of joint, intraoperative fracture, postoperative limited range of motion, persistent pain, failure of components, and need for additional procedures. Patient wished to proceed. Consent was obtained after answering all questions. Procedure: After marking the correct extremity on the floor, the patient was taken to the operating room. A timeout was performed. IV antibiotics consisting of Ancef were administered prior to the procedure. A spinal anesthetic was induced by anesthesia. A Moore catheter was inserted. The patient was then transitioned to a lateral position on a well-padded pegboard. An axillary roll was placed. The head was in neutral position. The non- operative down leg was well-padded with SCD and BEBO hose in place. The arms were supported and padded to protect from any undue pressure on the bony prominences and nerves. A well-padded anterior and posterior pelvic and chest posts were secured in order to maintain a stable position of the pelvis. This was placed so that the pelvis was perpendicular to the floor. The body was in line with the pelvis. Once it was felt that we had protected all the bony prominences and the patient was well secured with a safety belt as well, the leg was pre-scrubbed with alcohol, prepped and draped in a standard sterile fashion. A standard anterior lateral hip incision was marked out over the greater trochanter. Ioban drapes were then placed. The skin incision was then made. Sharp dissection with a scalpel utilizing cautery for hemostasis was carried out down to the gluteus and iliotibial band fascia. This was split in line with the skin incision. The greater trochanter bursa was excised. The anterior and posterior margins of the abductor tendon were identified. The anterior 1/2-1/3 of the tendon was tagged and reflected off the greater trochanter leaving a sleeve of tendon for repair at the completion of the case. This exposed the underlying hip joint capsule. An inverted T-type capsulotomy was made extending this up to the brim of the acetabulum. Using Homans to assist with elevation of the soft tissues off the anterior, superior, and inferior aspects of the femoral neck, the hip was then placed in a figure 4 position and the femoral head was dislocated. With the leg in an externally rotated and adducted position, the cutting flag was utilized in order to ward for a standard femoral neck cut approximately a fingerbreadth above the level of the lesser trochanter. This was done with reference to pre-operative films and overall alignment. This was done while protecting the surrounding soft tissues with Homans. The femoral head was then removed and sized for guidance on preparation of the acetabulum. It was noted that there was loss of articular cartilage on both the femoral head and weightbearing portions of the acetabulum. We then returned the leg to the table and turned our attention to the acetabulum. While protecting the surrounding soft tissues, the labrum and remaining tissue in the fovea were excised using a scalpel and cautery. A series of reamers up to size 52 millimeter were utilized to prepare the acetabulum. The final reamer had good purchase and exposed the bleeding subchondral bone. The acetabulum was then thoroughly irrigated ensuring that all bony and cartilaginous materials were removed, and the final acetabular shell was impacted into place. This was placed in approximately 45 degrees of abduction and 20 degrees of anteversion utilizing the outrigger and body axis for alignment. This had a good press fit. 1 6.5mm cancellous screw was placed in the superior posterior quadrant of the acetabulum. The shell was then thoroughly irrigated and the final polyethylene was impacted into place ensuring that it seated completely. This was then protected with a sponge while we returned our attention to the femur. With the leg in a figure 4 position, utilizing Homans for soft tissue protection, a box cutting osteotome, followed by Garrick awl, followed by carolyn gregory reamers and broaches were utilized in order to prepare the femur. It was found that a size 5 broach gave good axial and rotational stability. The calcar reamer was utilized in order to clean up the cut edges. The proximal femur was visualized to ensure that there were no signs of fracture. A series of heads and necks were trialed. It was found that a high offset neck and a + 5 femoral head gave good overall stability. There was minimal longitudinal instability. With the leg in the position of sleep, the femoral head was well covered. Hip range of motion was able to reach full extension and external rotation to greater than 75 degrees prior to impingement along the posterior acetabulum. The hip was able to be flexed to greater than 90 degrees with internal rotation greater than 60 degrees prior to anterior impingement. The limb lengths were near equal based on comparison to the contralateral side and the prior placed limb length stitch. At this point it was felt these were the appropriately sized femoral components as well as neck and femoral head. The trial implants were removed. The femur was thoroughly irrigated. The final implants were impacted into place, and the hip was reduced. After ensuring that there was no damage to the proximal femur, the standard periarticular joint injection of ropivacaine, Toradol, and epinephrine were injected into the joint capsule and surrounding soft tissues. Anesthesia then administered intravenous tranexamic acid. The capsule was repaired with a single interrupted #1 Vicryl. The abductor tendon was repaired to the greater trochanter utilizing #5 Ethibond through drill holes. This was oversewn with #1 Vicryl. The fascia was closed with interrupted #1 Vicryl and #1 Stratafix barbed suture. The wounds were thoroughly irrigated as we closed in layers. The deep and subcutaneous fat layers were closed with 0 and 3-0 Vicryl respectively. The subcutaneous tissue was closed with a running 3-0 Vicryl and the skin jarad. All sponge, needle, blade, and instrument counts were correct prior to closing the wounds. Sterile dressings consisting of xeroform, 4 x 4's, and tape were applied. The patient was awoken and transferred to her hospital bed and then to the postanesthesia care unit in stable condition. Postoperative condition: The plan is to admit to the medical/surgical inpatient floor postoperatively. There will be a projected 1 to 3 day hospital stay. Postoperatively 24 hours of IV antibiotics, pain control, physical therapy, occupational therapy, and medical comanagement will be utilized. Patient will be weightbearing as tolerated with anterior hip precautions. Postoperative films will be obtained in the recovery room.
--- NOTE | 2020-07-30 10:42 | ANES ---
Post Anesthesia Discharge - Transfer of Care Transfer of Care handoff given to nurse: Yes - Discharge from PACU Discharge from PACU when meets criteria: Yes - Awake and comfortable.
--- NOTE | 2020-07-30 10:56 | ANES ---
Post Anesthesia Assessment - Vital Signs Vitals: Last Vital Signs Temp 36.5 C 07/30/20 10:30 Pulse 49 L 07/30/20 10:50 Resp 16 07/30/20 10:50 BP 119/60 07/30/20 10:50 Pulse Ox 98 07/30/20 10:50 Airway Patency: Normal - Mental Status Level Of Consciousness: Awake, Alert, Appropriate - Pain Level Pain Score: 0 - N/V Assessment Nausea/Vomiting Presence: None Dehydration:: No
[2020-07-30] MEDS: KETOROLAC TROMETHAMINE 15 MG/ML VIAL IV SCH ×2 (11:58→17:26)
[2020-07-30] MEDS: ceFAZolin SODIUM 1 GM in DEXTROSE 5 % IN WATER 100 ML IV SCH ×4 (11:58→17:27)
[2020-07-30] MEDS: oxyCODONE HCL/ACETAMINOPHEN 1 TAB TABLET PO PRN (15:52)
[2020-07-30] MEDS: MORPHINE SULFATE 2 MG/ML DISP.SYRIN IV PRN (16:51)
[2020-07-30] MEDS: MORPHINE SULFATE 15 MG TABLET.SA PO SCH (20:51)
[2020-07-30] MEDS ORDERED: SENNOSIDES/DOCUSATE SODIUM 1 TAB TABLET PO SCH (21:00)
[2020-07-31] MEDS: ceFAZolin SODIUM 1 GM in DEXTROSE 5 % IN WATER 100 ML IV SCH ×2 (00:04)
[2020-07-31] MEDS: oxyCODONE HCL/ACETAMINOPHEN 1 TAB TABLET PO PRN ×4 (00:52→15:38)
[2020-07-31] MEDS: KETOROLAC TROMETHAMINE 15 MG/ML VIAL IV SCH ×3 (05:38→11:29)
[2020-07-31 06:31] LABS: Anion Gap 10.3 mmol/L (6.8-13.8); BUN/Creatinine Ratio 10.3 (9.0-21.6); Calcium * 8.1 mg/dL (7.9-10.9); Carbon Dioxide 26.7 mmol/L (24-32.6); Estimated Creat Clear 71.6
[2020-07-31 06:54] LABS: Hematocrit 42.7 % (42.0-52.0); Hemoglobin 14.1 gm/dL (13.5-18.0); Mean Cell Volume 93.4 fl (78-100); Mean Corpuscular Hemoglobin 30.9 pg (27-31); Mean Platelet Volume 9.7 fl (8-11.3); Platelet Count 201 K/mm3 (150-450); Red Blood Count 4.57 M/mm3 (4.7-6.0); Red Cell Distribution Width 12.6 % (11.5-14.0); White Blood Count 8.5 K/mm3 (4.0-10.5)
[2020-07-31] MEDS: MORPHINE SULFATE 2 MG/ML DISP.SYRIN IV PRN (07:55)
[2020-07-31] MEDS: MORPHINE SULFATE 15 MG TABLET.SA PO SCH (08:49)
[2020-07-31] MEDS ORDERED: METOPROLOL TARTRATE 25 MG TABLET PO SCH (09:00)
[2020-07-31] MEDS ORDERED: FAMOTIDINE 20 MG TABLET PO SCH (09:00)
[2020-07-31] MEDS ORDERED: ENOXAPARIN SODIUM 40 MG/0.4 ML SYRG SC SCH (09:21)
--- NOTE | 2020-07-31 15:11 | DS ---
(1) Status post left hip replacement Problem: Acute Hospital Course: Mr. Looney was admitted to the floor after undergoing left total hip arthroplasty. Tolerated this well. Was admitted to the floor postoperatively for 24 hours of IV antibiotics, pain control, medical comanagement, and occupational and physical therapy. OT and PT were consulted to assist with activities of daily living and ambulation. Was made weightbearing as tolerated with range of motion as tolerated utilizing anterior hip precautions. Pain was initially controlled with IV regimen. This was transitioned to oral once tolerating a by mouth intake. Was resumed on home diet and medications. Had a Moore catheter inserted and the operating room which was discontinued on postoperative day 1. . Lovenox SCD and BEBO hose were utilized for DVT prophylaxis. Vital signs remained stable to the hospital course. Serial labs were obtained which showed a final hemoglobin of 14.1 grams. BMP was reviewed and was stable. Physical examination throughout the hospital course showed an extremity that had sensation that was intact to light touch, palpable pulses, a benign wound, motor intact to the toes, ankle, and knee. Once an oral pain regimen was tolerated and physical therapy goals were met, it was felt that they were stable for discharge to home. Instructions: Continue with weightbearing as tolerated and range of motion as tolerated utilizing anterior precautions. Keep surgical site clean and dry. If you note any drainage or for comfort you can cover with dry gauze and tape. Change every 2-3 days as needed. Continue with physical therapy. Resume home diet. Report any fever over 101.5 Fahrenheit, uncontrolled pain, increased drainage, foul odor of drainage, new or increased calf pain or shortness of breath, or any other significant complaints. A 325mg dialy aspirin will be started after finishing anticoagulation if not allergic. Continue with BEBO hose on the operative extremity until instructed otherwise. No driving until instructed otherwise. Follow up in approximately 10-14 days. Procedures Performed: see notes below List Procedures: Left total hip arthroplasty Results and Findings: Lab Pending Results 07/31/20 06:19: WBC 8.5, RBC 4.57 L, Hgb 14.1, Hct 42.7, MCV 93.4, MCH 30.9, MCHC 33.0, RDW 12.6, Plt Count 201, MPV 9.7 07/31/20 06:19: Sodium 141, Plasma Sodium 141, Potassium 4.0, Chloride 108 H, Carbon Dioxide 26.7, Anion Gap 10.3, BUN 10, Creatinine 0.97, Est GFR (Non-Af Amer) 83, BUN/Creatinine Ratio 10.3, Random Glucose 128 H, Calcium 8.1 Discharge Location: Home Disposition: Home self-care Condition: Good Discharge Activity: Activity as tolerated, Weight bearing, Other - Utilizing anterior hip precautions Discharge Diet: General/regular food Referrals: Geeta Boothe MD [Primary Care Provider] - Additional Patient Instructions (free text): Physical Therapy at [facility] outpatient rehab department on WednesdayAugust 02 at 2:00pm. Follow up Orthopedic office appointment on WednesdayAugust 13 at 1:15pm. Prescriptions (Any new or edited meds): Enoxaparin Sodium [Lovenox] 40 mg SC Q24H #7 disp.syrin Transmission Status: Pending to [facility] Morphine Sulfate [Ms Contin] 15 mg PO Q12H #20 tablet.sa Transmission Status: Sent to [facility] oxyCODONE HCL/ACETAMINOPHEN [Percocet 5 MG/325 MG] 2 tab PO Q4H PRN #56 tab PRN Reason: Moderate Pain (Pain Scale 4-6) Transmission Status: Sent to [facility] Complete Home Medications List: Complete Home Medication List: acetaminophen 325 mg tablet 650 mg PO Q6H PRN tab 05/15/20 metoprolol tartrate 25 mg tablet 25 mg PO DAILY tab 05/15/20 famotidine 40 mg tablet 40 mg PO DAILY #30 tab 06/12/20 Aspirin 325 mg PO DAILY 07/30/20 Enoxaparin Sodium [Lovenox] 40 mg SC Q24H #7 disp.syrin 07/31/20 Morphine Sulfate [Ms Contin] 15 mg PO Q12H #20 tablet.sa 07/31/20 oxyCODONE HCL/ACETAMINOPHEN [Percocet 5 MG/325 MG] 2 tab PO Q4H PRN #56 tab 07/31/20 Amb Orders for Discharge: PT Evaluation and Treatment* Facility: [facility], Location: Rehabilitation Services Forms: Patient Portal Registration
[2020-07-31 16:37] VITALS: BP 154/76
== END 2020-07-31 15:50 | disposition home or self-care (01) ==
LOC: SUR 06:31 → MS 06:31
PROVIDERS: ADMIT Orthopaedic Surgery; ATTEND Orthopaedic Surgery
DX: M16.12 Unilateral primary osteoarthritis, left hip

== ENCOUNTER 2020-08-23 09:49 | Observation (INO) ==
[2020-08-23] MEDS ORDERED: ONDANSETRON HCL/PF 2 MG/ML VIAL IV ONE ×2 (09:59→15:54)
[2020-08-23] MEDS ORDERED: MORPHINE SULFATE 2 MG/ML DISP.SYRIN IV ONE (10:00)
[2020-08-23 10:21] LABS: Hematocrit 44.8 % (42.0-52.0); Hemoglobin 14.9 gm/dL (13.5-18.0); Mean Cell Volume 90.3 fl (78-100); Mean Corpuscular Hgb Conc 33.3 g/dl (32-36); Mean Platelet Volume 8.8 fl (8-11.3); Neutrophil # 9.7 K/mm3 (1.3-6.0); Neutrophil % 80.5 % (42-75.0); Platelet Count 485 K/mm3 (150-450); Red Blood Count 4.96 M/mm3 (4.7-6.0); Red Cell Distribution Width 12.1 % (11.5-14.0)
--- NOTE | 2020-08-23 10:31 | ERNOTE ---
Medical Problem HPI - Narrative Date of Service: 08/23/20 - General Chief Complaint: Nausea/Vomiting Time Seen by Provider: 08/23/20 09:58 Source: patient, family - spouse at bedside Exam Limitations: no limitations - Immun/Allergies/Home Medications Immunizations: IMMUNIZATION HX Immunizations Up to Date Yes History of Influenza Vaccine No Hx Pneumococcal Vaccination No Allergies/Adverse Reactions: Allergies No Known Allergies Allergy (Verified 08/20/20 14:16) Home Medications: HOME MEDICATIONS acetaminophen 325 mg tablet 650 mg PO Q6H PRN tab 05/15/20 [Last Taken Unknown] metoprolol tartrate 25 mg tablet 25 mg PO DAILY tab 05/15/20 [Last Taken Unknown] famotidine 40 mg tablet 40 mg PO DAILY #30 tab 06/12/20 [Last Taken 08/20/20 09:00] Aspirin 325 mg PO DAILY 07/30/20 [Last Taken Unknown] Sulfamethoxazole/Trimethoprim [Bactrim Ds] 1 tab PO BID #20 tab 08/20/20 [Last Taken Unknown] hydrocodone 5 mg-acetaminophen 325 mg tablet 1 - 2 tab PO Q8H PRN #40 tab 08/21/20 [Last Taken Unknown] promethazine 12.5 mg tablet 12.5 mg PO Q4H PRN #20 tab 08/23/20 [Last Taken Unknown] - Pain Score Pain Score #1 Pain Score: 10 - History of Present History Narrative: The patient is a 60 year old male who presents for left side pain and vomiting which has been present since this am. There are associated symptoms of fatigue and chills with diaphoresis. The patient reports pain to left flank and hip, 10/10. There are no alleviating factors. There are aggravating factors of position. Previous treatments have included: Phenergan without improvement. The past medical history includes: HTN and AFib. The social history is negative. The patient has had no known ill contacts. Patient is recent s/p left total hip with recent concern for infection to area and taken to OR on 08/20/20 in which it was identified that he had a subcutaneous stitch abscess. The surgical incision area was revised after cultures obtained with interrupted sutures. No area of infection was noted to track past subcutaneous area into the fat layer making replacement infection less likely. Patient states he awoke this am with pain to left flank area and vomiting. Review of Systems - Review of Systems Constitutional: Present: chills, diaphoresis, fatigue. Absent: fever EYE: Present: no symptoms reported ENT: Present: no symptoms reported. Absent: ear pain, nasal drainage, sore throat Respiratory: Present: no symptoms reported. Absent: shortness of breath, cough Cardiology: Present: no symptoms reported. Absent: chest pain Gastrointestinal/Abdominal: Present: nausea, vomiting, abdominal pain. Absent: diarrhea Genitourinary: Present: no symptoms reported. Absent: dysuria, decreased urinary output Musculoskeletal: Present: joint pain Skin: Present: no symptoms reported Medical History (Last Reviewed 08/23/20 @ 10:19 by AGUILAR Hays) Afib HTN (hypertension) Surgical History: Surgical History (Last Reviewed 08/23/20 @ 10:19 by AGUILAR Hays) S/P total hip arthroplasty Onset Date: ~07/30/20 Procedure: Left total hip arthroplasty. Dr. Sanches H/O cardiac radiofrequency ablation H/O shoulder surgery right x 2 History of hip surgery right [place]-Dr. Sanches Hx of cholecystectomy Family History: Family History (Last Reviewed 08/23/20 @ 10:19 by AGUILAR Hays) Other Family history non-contributory Social History: (Last Reviewed 08/23/20 @ 10:19 by AGUILAR Hays) Social History: Marital status: lives independently: Yes household members: spouse number of children: 4 current occupational status: retired current occupation: retired [employer] Highest level of school completed/degree received: some college, no degree Service: No Tobacco: Smoking Status: Former smoker Alcohol: alcohol intake frequency: holiday/special occasion Substance Use: substance use type: does not use Dietary Habits: caffeine: Yes Type: coffee Physical Exam - Physical Exam General Appearance: Present: wd/wn, alert, moderate distress Head Exam: Present: normal inspection, no evidence of injury Eye Exam: Normal inspection: bilateral Neck: Present: normal inspection Respiratory: Present: no respiratory distress, normal breath sounds, no accessory muscle use, lungs clear Cardiovascular/Chest: Present: regular rate, rhythm, no murmur Peripheral Pulses: N=norm/S=strong/W=weak/B=bound/A=absent: Dorsalis-pedis (R): Normal Gastrointestinal/Abdominal: Present: normal bowel sounds, nondistended, soft, no organomegaly, tenderness - RUQ, epigastric, LUQ, LLQ Extremity Exam: Present: no edema Neurological Exam: Present: alert, oriented, normal mood/affect, no motor/sensory deficits Skin Exam: Present: normal color, warm/dry, other - surgical incision noted to lateral left hip, no surrounding erythema or drainage noted, wound edges well approximated with interrupted sutures. Progress - Date and Time Seen: Date and Time: 08/23/20 12:12 Review of case with Wilton PERALTA, presents to ER for consult and patient exam. From orthopedic standpoint agrees that symptoms are not associated with infection at the hip. Due to abdominal pain on exam will proceed with abdominal imaging for further evaluation. 08/23/20 15:[address] imaging reviewed with patient. Patient has had no further emesis since prior to consumption of oral contrast prep. Patient offered admission for observation for monitoring and IV hydration and refuses admission. Patient states he prefers to go home and will return if symptoms recur or any new symptoms develop. Patient has been ambulatory to restroom without difficulty and states having bowel movements, likely associated with contrast. Patient could have a viral etiology that caused the onset of nausea with vomiting as after evaluation and consult with ortho do not feel that this is associated with recent procedure. Patient also has negative abdominal CT making acute pathology less likely. 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 Nurse took patient a glass of water in which patient drank the full glass quickly. Patient following consumption began having recurrent vomiting and decided that he would like to stay to ensure symptoms are managed. Case was reviewed with and will admit for intractable nausea and vomiting. - Results and Orders Patient's Lab Results:: I have reviewed the patient's lab results. - Vital Signs Patient's Vital Signs:: I have reviewed the patient's vital signs. Vital Signs: Vital Signs 08/23/20 09:50 Temperature 35.9 C L Pulse Rate 75 Respiratory Rate 22 H Blood Pressure 211/105 H O2 Sat by Pulse Oximetry 100 - EKG EKG #1 EKG: NSR - sinus arrhythmia EKG read: Reviewed by me - X-Ray X-Ray #1 X-Ray: hip Interpretation: Reviewed by me X-ray Comments: IMPRESSION: POSTOPERATIVE CHANGE OF BILATERAL HIP ARTHROPLASTY. NO EVIDENCE OF H ARDWARE FAILURE OR LOOSENING. OTHERWISE NEGATIVE LEFT HIP AND PELVIS. Electronically signed by Gabe Burk MD. X-Ray #2 X-Ray: abdomen Interpretation: Reviewed by me X-ray Comments: IMPRESSION: NEGATIVE STUDY. Electronically signed by Gabe Burk MD. X-Ray #3 X-Ray: chest Interpretation: Reviewed by me X-ray Comments: IMPRESSION: No consolidation. Question bronchitis. Electronically signed by Cipriano Montes D.O.. - CT/Ultrasound CT/Ultrasound Narrative: IMPRESSION: 1. NO ACUTE OR ACTIVE ABDOMINAL OR PELVIC PROCESSES. 2. MILD DIFFUSE HEPATIC STEATOSIS AND STABLE SUBCENTIMETER INDETERMINATE HYPODENSE LESION IN THE RIGHT LOBE OF THE LIVER, LIKELY A SMALL CYST OR HEMANGIOMA. 3. COLONIC DIVERTICULOSIS WITH NO ACUTE DIVERTICULITIS. 4. SMALL HIATAL HERNIA AND MILD THICKENING OF THE DISTAL ESOPHAGUS, LIKELY REFLECTING SEQUELA OF CHRONIC REFLUX ESOPHAGITIS. Electronically signed by Gabe Burk MD. - Progress/Reassessment Chief Complaint: Nausea/Vomiting Departure Clinical Impression: Vomiting Qualifiers: Vomiting type: unspecified Vomiting Intractability: intractable Nausea presence: with nausea Qualified Code(s): R11.2 - Nausea with vomiting, unspecified - Departure Disposition: Still a patient Condition: Fair Instructions: Vomiting, Adult Print Language: Macedonian Additional Instructions: Clear liquids for remainder of today, tomorrow advance diet slowly as tolerated. Return to ER if you develop any new or worsening symptoms such as recurrent vomiting, fever or abdominal pain. Rest. Follow up with on Wednesday for recheck. Monitor for signs of infection to surgical wound such as redness, drainage or pain. Follow up with orthopedic office as scheduled. Referrals: Geeta Boothe MD [Staff Physician] - 08/27/20 10:00 am Cipriano Wolfe PAC [Adolescent Coordinator] - 08/27/20 1:00 pm
[2020-08-23 10:42] LABS: ALT 32 U/L (19-67); AST 20 U/L (0-48); Albumin * 4.4 gm/dl (3.4-5.0); Alkaline Phosphatase * 134 U/L (50-170); Amylase * 38 U/L (25-115); Anion Gap 20.3 mmol/L (6.8-13.8); BUN/Creatinine Ratio 8.2 (9.0-21.6); Bilirubin, Total 0.4 mg/dL (0.0-1.1); Blood Urea Nitrogen 11 mg/dL (6-23); CRP 1.2 mg/dL (0.0-0.9); Ca. Corrected For Albumin 9.3 mg/dL (8.4-10.2); Calcium * 9.9 mg/dL (7.9-10.9); Carbon Dioxide 22.5 mmol/L (24-32.6); Chloride 102 mmol/L (97-106); Glucose * 167 mg/dL (70-110); Lipase 111 U/L (73-393); Potassium 3.8 mmol/L (3.4-4.6); Sodium 141 mmol/L (132-142); Total Protein 8.5 gm/dL (6.2-8.2)
[2020-08-23 10:43] LABS: Troponin I Less than 0.017 ng/mL (0.00-0.10)
[2020-08-23] MEDS ORDERED: NORMAL SALINE 1,000 ML IV PRN (10:49)
[2020-08-23] MEDS ORDERED: DIATRIZOATE MEGLUMINE, SODIUM 30 ML BTL ONE (12:06)
[2020-08-23] MEDS ORDERED: METOCLOPRAMIDE HCL 5 MG/ML VIAL IV ONE (12:11)
[2020-08-23] MEDS ORDERED: diphenhydrAMINE HCL 50 MG/ML VIAL IV ONE (12:11)
[2020-08-23] MEDS ORDERED: DIATRIZOATE MEGLUMINE, SODIUM 30 ML BTL PO ONE (12:12)
[2020-08-23 13:08] LABS: Urine Bilirubin 1 mg/dl (NEGATIVE); Urine Blood Negative /ul (NEGATIVE); Urine Ketone 50 mg/dL (NEGATIVE); Urine Nitrite Negative (NEGATIVE); Urine Protein 15 mg/dL (NEGATIVE); Urine Urobilinogen Normal (NORMAL)
[2020-08-23 13:15] LABS: Urine Appearance Slightly Cloudy (CLEAR); Urine Bacteria 1+; Urine Color Yellow; Urine Fine Granular Cast 0-5 /LPF; Urine Mucus Few - 1+; Urine RBC None Seen /hpf (0-5); Urine WBC 0-5 /hpf (0-5)
--- NOTE | 2020-08-23 13:20 | CONS ---
[facility] - General Date of Service: 08/23/20 Narrative: 60-year-old male presents today for nausea and vomiting. Orthopedics consulted because we previously did a total hip arthroplasty on the left side he recently had a washout for subcutaneous suture abscess that revealed pansensitive staph. Patient presented to the ED and missed his follow-up in our office were consulted to the ED for evaluation. Patient denies any significant pain of his left hip. He notes he is removed his dressings prior to arrival to the ED. He denies any significant left hip pain at this time. He denies any history of fever or chills. He notes he has not had any other significant complications this time and that he was plan for follow-up today. Source: patient Exam Limitations: no limitations - History of Present Illness Allergies/Adverse Reactions: Allergies No Known Allergies Allergy (Verified 08/20/20 14:16) Home Medications: Home Medications Medication Instructions Recorded Last Taken acetaminophen 325 mg tablet 650 mg PO Q6H PRN tab 05/15/20 Unknown metoprolol tartrate 25 mg tablet 25 mg PO DAILY tab 05/15/20 Unknown famotidine 40 mg tablet 40 mg PO DAILY #30 tab 06/12/20 08/20/20 09:00 Aspirin 325 mg PO DAILY 07/30/20 Unknown Sulfamethoxazole/Trimethoprim 1 tab PO BID #20 tab 08/20/20 Unknown [Bactrim Ds] hydrocodone 5 mg-acetaminophen 325 1 - 2 tab PO Q8H PRN #40 tab 08/21/20 Unknown mg tablet promethazine 12.5 mg tablet 12.5 mg PO Q4H PRN #20 tab 08/23/20 Unknown Procedures Contrast arthrogram (02/10/08) Endoscopic polypectomy of large intestine (02/07/08) Excision of Left Ulna, Open Approach (01/03/16) Excision of hemorrhoids (02/07/08) Introduction of Anti-inflammatory into Joints, Percutaneous Approach (12/16/15) Introduction of Local Anesthetic into Joints, Percutaneous Approach (12/16/15) Other local excision or destruction of lesion or tissue of anus (02/07/08) Total hip replacement (05/08/13) Medications - Medications Current Medications: Current Medications Sodium Chloride (Sodium Chloride 0.9%) 1,000 mls @ 999 mls/hr IV .Q1H1M PRN PRN Reason: HYDRATION Stop: 09/22/20 10:50 Last Infusion: 08/23/20 12:15 Dose: Infused Documented by: Physical Examination - Exam Vital Signs: Vital Signs - Last Taken Temp 35.9 C L 08/23/20 09:50 Pulse 88 08/23/20 12:00 Resp 12 08/23/20 12:00 BP 192/71 H 08/23/20 12:00 Pulse Ox 99 08/23/20 12:00 O2 Oxygen Delivery Method Room Air Constitutional: Present: Alert, Cooperative Respiratory: Present: no respiratory distress Extremity: Present: other - Left lower extremity--> diffuse mild tenderness about left hip, incision with sutures in place without significant drainage, mild erythema distally, wound is well approximated, gentle passive motion without significant change, capillary refill brisk around wound - Results and Findings: Lab/Microbiology results last 24 hrs: Abnormal/Pending Laboratory Last 24 HRS 08/23/20 08/23/20 08/23/20 10:14 10:14 09:59 WBC 12.0 H Plt Count 485 H Immature Gran % (Auto) 1.10 H Immature Gran # (Auto) 0.13 H Neutrophils % 80.5 H Lymphocytes % 13.1 L Neutrophils # 9.7 H Carbon Dioxide 22.5 L Anion Gap 20.3 H Est GFR (Non-Af Amer) 57 L D BUN/Creatinine Ratio 8.2 L Random Glucose 167 H Lactic Acid, Venous 2.4 H* C-Reactive Prot, Quant 1.2 H Total Protein 8.5 H - Assessments/Findings (1) Status post left hip replacement Problem: Acute Plan - Plan Plan: 60-year-old man presented to the ED with nausea and vomiting. Prior treatment includes a left total hip arthroplasty. Patient underwent a irrigation debridement of a subcutaneous suture abscess on 08/20/2020. The wound was evaluated today without significant signs of infection. Surgical procedure did not reveal reveal any significant signs of acute deep infection. X-rays today w ere taken in the ED without acute concerns. Incision was evaluated there is mild erythema sutures are in place as well approximated no active drainage. Discussed reapplying appropriate dressings including Xeroform, dry gauze, tape. Discussed with patient importance of maintaining dressings in place until orthopedic follow-up. He expressed understanding however felt as though he needed to remove his dressings prior to his arrival today. Discussed with patient need to continue monitoring acute follow-up he has a scheduled follow-up on 08/27/2020 with the orthopedic office. He can call with any acute question or concern. Otherwise continue monitoring for acute changes. Discussed with the ED provider continued work-up of patient's acute belly pain. Can notify orthopedics with any significant concerns about the left hip.
[2020-08-23] MEDS ORDERED: NORMAL SALINE 1,000 ML IV ONE (17:08)
--- NOTE | 2020-08-23 17:53 | HP ---
Chief Complaint - Chief Complaint Date of Service: 08/23/20 Time of Service: 17:43 Chief Complaint: Nausea and vomiting History of Present Illness: Misael Looney is a 60-year-old white male with past medical history of hypertension, obstructive sleep apnea, recent total left hip replacement 08/20/2020 who was admitted on 08/23/2020 because of lower abdominal pain associated with nausea and vomiting. This started early this morning of admission and he has not been able to take any of his medications. He has fatigue and chills and had recent hip replacement and developed a subcutaneous stitch abscess which was surgically debrided and irrigated. It grew Staph Aureus, MSSA. Orthopedics saw patient in the emergency room and does not think his nausea and vomiting is secondary to his infection. He has been taking Bactrim for this. In the emergency room his blood work showed he had a WBC count of 12, hemoglobin of 14.9, platelet of 485, electrolytes within normal limits, BUN/creatinine ratio ratio of 8.2, GFR 57 with a creatinine 1.34, liver function test within normal limits. His chest x- ray showed no consolidation question of bronchitis. His abdominal x-ray showed negative study. His abdominal CT scan showed no acute or active abdominal or pelvic processes, mild diffuse hepatic steatosis with indeterminate hypodense lesion in the right lobe of the liver likely a small cyst or hemangioma, colonic diverticulosis without diverticulitis small hiatal hernia with mild thickening of the distal esophagus likely a sequela of chronic reflux esophagitis. Initially the patient did not want to be admitted but before he was discharged from the emergency room he took 4 ounces of water and started vomiting about 100 mL of bilious material. He was then admitted for observation and further evaluation and treatment. Medical History (Last Reviewed 08/23/20 @ 10:19 by AGUILAR Hays) Afib HTN (hypertension) Surgical History: Surgical History (Last Reviewed 08/23/20 @ 10:19 by AGUILAR Hays) S/P total hip arthroplasty Onset Date: ~07/30/20 Procedure: Left total hip arthroplasty. Dr. Sanches H/O cardiac radiofrequency ablation H/O shoulder surgery right x 2 History of hip surgery right [place]-Dr. Sanches Hx of cholecystectomy Family History: Family History (Last Reviewed 08/23/20 @ 10:19 by AGUILAR Hays) Other Family history non-contributory Social History: (Last Reviewed 08/23/20 @ 10:19 by AGUILAR Hays) Social History: Marital status: lives independently: Yes household members: spouse number of children: 4 current occupational status: retired current occupation: retired [employer] Highest level of school completed/degree received: some college, no degree Service: No Tobacco: Smoking Status: Former smoker Alcohol: alcohol intake frequency: holiday/special occasion Substance Use: substance use type: does not use Dietary Habits: caffeine: Yes Type: coffee Review Of Systems (GEN) - Review of Systems Generalized/Overall Review: Present: Weakness, Chills. Absent: Fever EENTM: Absent: Blurred Vision, Double Vision Respiratory: Absent: Cough, Shortness of Breath, Orthopnea, Wheezing Cardiac: Absent: Chest Pain, Edema, Palpitations - Hello clear liquids and n.p.o. affect okay thank you Abdominal: Present: Nausea, Vomiting, Abdominal Pain, Diarrhea - x1 Genitourinary: Absent: Urgency, Frequency Musculoskeletal: Present: Joint Pain. Absent: Back Pain Neurological: Present: Headache Skin: Absent: Lesions, Rash Misc: All systems neg except as marked Immunizations: IMMUNIZATION HX Immunizations Up to Date Yes History of Influenza Vaccine No Hx Pneumococcal Vaccination No Allergies/Adverse Reactions: Allergies Allergy/AdvReac Type Severity Reaction Status Date / Time No Known Allergies Allergy Verified 08/23/20 17:43 Home Medications: HOME MEDICATIONS acetaminophen 325 mg tablet 650 mg PO Q6H PRN tab 05/15/20 [Last Taken Unknown] metoprolol tartrate 25 mg tablet 25 mg PO DAILY tab 05/15/20 [Last Taken Unknown] famotidine 40 mg tablet 40 mg PO DAILY #30 tab 06/12/20 [Last Taken 08/20/20 09:00] Aspirin 325 mg PO DAILY 07/30/20 [Last Taken Unknown] Sulfamethoxazole/Trimethoprim [Bactrim Ds] 1 tab PO BID #20 tab 08/20/20 [Last Taken Unknown] hydrocodone 5 mg-acetaminophen 325 mg tablet 1 - 2 tab PO Q8H PRN #40 tab 08/21/20 [Last Taken Unknown] promethazine 12.5 mg tablet 12.5 mg PO Q4H PRN #20 tab 08/23/20 [Last Taken Unknown] Exam - Exam Vital Signs: Vital Signs - Last Taken Temp 37.2 C 08/23/20 16:07 Pulse 87 08/23/20 16:07 Resp 12 08/23/20 16:07 BP 222/75 H 08/23/20 16:07 Pulse Ox 97 08/23/20 16:07 Constitutional: Present: Alert, Oriented x3 ENT Exam: Present: hearing grossly normal Eye Exam: bilateral eye: normal inspection, PERRL, EOMI Neck: Present: supple. Absent: lymphadenopathy (R), lymphadenopathy (L) Respiratory: Present: normal breath sounds, No rales, No wheezing Cardiovascular/Chest: Present: regular rate, rhythm, no JVD, no murmur Abdomen: Present: soft, nondistended, tender - Lower half of abdomen, hypoactive. Absent: rebound tenderness Extremity: Present: no calf tenderness, pedal edema Neurologic: Present: oriented x 3. Absent: motor weakness, sensory deficit Diagnostic Studies: Abnormal Lab Results 08/23/20 08/23/20 08/23/20 Range/Units 09:59 10:14 10:14 WBC 12.0 H (4.0-10.5) K/mm3 Plt Count 485 H (150-450) K/mm3 Immature Gran % (Auto) 1.10 H (0.001-0.429) % Immature Gran # (Auto) 0.13 H (0.000-0.0310) K/mm3 Neutrophils % 80.5 H (42-75.0) % Lymphocytes % 13.1 L (20-51) % Neutrophils # 9.7 H (1.3-6.0) K/mm3 Carbon Dioxide 22.5 L (24-32.6) mmol/L Anion Gap 20.3 H (6.8-13.8) mmol/L Est GFR (Non-Af Amer) 57 L D (60-130) mL/min BUN/Creatinine Ratio 8.2 L (9.0-21.6) Random Glucose 167 H (70-110) mg/dL Lactic Acid, Venous 2.4 H* (0.4-2.0) mmol/L C-Reactive Prot, Quant 1.2 H (0.0-0.9) mg/dL Total Protein 8.5 H (6.2-8.2) gm/dL Urine Protein (NEGATIVE) mg/dL Urine Bilirubin (NEGATIVE) mg/dl Urine Bacteria (NONE) Fine Granular Casts (NONE) /LPF Urine Mucus (NONE) 08/23/20 Range/Units 12:54 WBC (4.0-10.5) K/mm3 Plt Count (150-450) K/mm3 Immature Gran % (Auto) (0.001-0.429) % Immature Gran # (Auto) (0.000-0.0310) K/mm3 Neutrophils % (42-75.0) % Lymphocytes % (20-51) % Neutrophils # (1.3-6.0) K/mm3 Carbon Dioxide (24-32.6) mmol/L Anion Gap (6.8-13.8) mmol/L Est GFR (Non-Af Amer) (60-130) mL/min BUN/Creatinine Ratio (9.0-21.6) Random Glucose (70-110) mg/dL Lactic Acid, Venous (0.4-2.0) mmol/L C-Reactive Prot, Quant (0.0-0.9) mg/dL Total Protein (6.2-8.2) gm/dL Urine Protein 15 H (NEGATIVE) mg/dL Urine Bilirubin 1 H (NEGATIVE) mg/dl Urine Bacteria 1+ H (NONE) Fine Granular Casts 0-5 H (NONE) /LPF Urine Mucus Few - 1+ H (NONE) Laboratory Results WBC 12.0 K/mm3 (4.0-10.5) H 08/23/20 09:59 RBC 4.96 M/mm3 (4.7-6.0) 08/23/20 09:59 Hgb 14.9 gm/dL (13.5-18.0) 08/23/20 09:59 Hct 44.8 % (42.0-52.0) 08/23/20 09:59 MCV 90.3 fl (78-100) 08/23/20 09:59 MCH 30.0 pg (27-31) 08/23/20 09:59 MCHC 33.3 g/dl (32-36) 08/23/20 09:59 RDW 12.1 % (11.5-14.0) 08/23/20 09:59 Plt Count 485 K/mm3 (150-450) H 08/23/20 09:59 MPV 8.8 fl (8-11.3) 08/23/20 09:59 Immature Gran % (Auto) 1.10 % (0.001-0.429) H 08/23/20 09:59 Immature Gran # (Auto) 0.13 K/mm3 (0.000-0.0310) H 08/23/20 09:59 Neutrophils % 80.5 % (42-75.0) H 08/23/20 09:59 Lymphocytes % 13.1 % (20-51) L 08/23/20 09:59 Monocytes % 4.2 % (0.0-9) 08/23/20 09:59 Eosinophils % 0.7 % (0.0-3.0) 08/23/20 09:59 Basophils % 0.4 % (0.0-1.0) 08/23/20 09:59 Nucleated RBC % 0.0 k/mm3 (0-1) 08/23/20 09:59 Neutrophils # 9.7 K/mm3 (1.3-6.0) H 08/23/20 09:59 Lymphocytes # 1.58 k/mm3 (1.5-3.5) 08/23/20 09:59 Monocytes # 0.5 k/mm3 (0.0-1.0) 08/23/20 09:59 Eosinophils # 0.1 k/mm3 (0.0-0.7) 08/23/20 09:59 Absolute Basophils 0.1 k/mm3 (0.0-0.1) 08/23/20 09:59 Sodium 141 mmol/L (132-142) 08/23/20 10:14 Plasma Sodium 142 mmol/L (130-142) 08/23/20 10:14 Potassium 3.8 mmol/L (3.4-4.6) 08/23/20 10:14 Chloride 102 mmol/L (97-106) 08/23/20 10:14 Carbon Dioxide 22.5 mmol/L (24-32.6) L 08/23/20 10:14 Anion Gap 20.3 mmol/L (6.8-13.8) H 08/23/20 10:14 BUN 11 mg/dL (6-23) 08/23/20 10:14 Creatinine 1.34 mg/dL (0.4-1.4) 08/23/20 10:14 Est GFR (Non-Af Amer) 57 mL/min (60-130) L D 08/23/20 10:14 BUN/Creatinine Ratio 8.2 (9.0-21.6) L 08/23/20 10:14 Random Glucose 167 mg/dL (70-110) H 08/23/20 10:14 Lactic Acid, Venous 1.8 mmol/L (0.4-2.0) 08/23/20 13:00 Calcium 9.9 mg/dL (7.9-10.9) 08/23/20 10:14 Calcium Adj for Albumin 9.3 mg/dL (8.4-10.2) 08/23/20 10:14 Total Bilirubin 0.4 mg/dL (0.0-1.1) 08/23/20 10:14 AST 20 U/L (0-48) 08/23/20 10:14 ALT 32 U/L (19-67) 08/23/20 10:14 Alkaline Phosphatase 134 U/L (50-170) 08/23/20 10:14 Troponin I Less than 0.017 ng/mL (0.00-0.10) 08/23/20 10:14 C-Reactive Prot, Quant 1.2 mg/dL (0.0-0.9) H 08/23/20 10:14 Total Protein 8.5 gm/dL (6.2-8.2) H 08/23/20 10:14 Albumin 4.4 gm/dl (3.4-5.0) 08/23/20 10:14 Amylase 38 U/L (25-115) 08/23/20 10:14 Lipase 111 U/L (73-393) 08/23/20 10:14 Urine Color Yellow 08/23/20 12:54 Urine Appearance Slightly cloudy (CLEAR) 08/23/20 12:54 Urine pH 7.0 pH (5.0-7.0) 08/23/20 12:54 Ur Specific Omega 1.020 SP.GR. (1.005-1.030) 08/23/20 12:54 Urine Protein 15 mg/dL (NEGATIVE) H 08/23/20 12:54 Urine Glucose (UA) Negative mg/dL (NEGATIVE) 08/23/20 12:54 Urine Ketones 50 mg/dL (NEGATIVE) 08/23/20 12:54 Urine Blood Negative /ul (NEGATIVE) 08/23/20 12:54 Urine Nitrate Negative (NEGATIVE) 08/23/20 12:54 Urine Bilirubin 1 mg/dl (NEGATIVE) H 08/23/20 12:54 Urine Urobilinogen Normal EU/dl (NORMAL) 08/23/20 12:54 Ur Leukocyte Esterase Negative /ul (NEGATIVE) 08/23/20 12:54 Urine RBC None seen /hpf (0-5) 08/23/20 12:54 Urine WBC 0-5 /hpf (0-5) 08/23/20 12:54 Ur Epithelial Cells 0-5 /hpf (0-5) 08/23/20 12:54 Urine Bacteria 1+ (NONE) H 08/23/20 12:54 Fine Granular Casts 0-5 /LPF (NONE) H 08/23/20 12:54 Urine Mucus Few - 1+ (NONE) H 08/23/20 12:54 Urine Culture Comments No culture indicated 08/23/20 12:54 SARS-CoV-2 (PCR) Not detected (NotDetected) 08/23/20 15:45 Assessment/Plan - Narrative Narrative: Tomasz Looeny was admitted for nausea and vomiting with abdominal pain. His CT scan did not show any evidence of acute intra-abdominal or pelvic processes. There was thickening of his esophagitis on CTS due to likely reflux disease which could have been aggravated by his recent oral antibiotics. His blood pressure was also elevated in the emergency room and it is possible that his nausea vomiting also could also be central or could be contributing factor. We will give him IV labetalol and resume his hypertensive medications and antibiotic intravenously tonight. We will also start him on IV protonix. He will get IV Zofran, IV pain medication on as-needed basis and we will continue with his IV fluids. - Assessment/Plan (1) Vomiting Problem: Acute Qualifiers: Vomiting type: unspecified Vomiting Intractability: intractable Nausea presence: with nausea Qualified Code(s): R11.2 - Nausea with vomiting, unspecified (2) GERD (gastroesophageal reflux disease) Problem: Chronic (3) Hypertension Problem: Acute Qualifiers: Hypertension type: essential hypertension Qualified Code(s): I10 - Essential (primary) hypertension (4) Status post left hip replacement Problem: Acute (5) Obstructive sleep apnea Problem: Chronic (6) Postoperative stitch abscess Assessment: s/p debridement and irrigation Problem: Acute
[2020-08-23] MEDS ORDERED: ACETAMINOPHEN 325 MG TABLET PO PRN (18:05)
[2020-08-23] MEDS ORDERED: LABETALOL HCL 5 MG/ML VIAL IV ONE ×2 (18:09→18:14)
[2020-08-23] MEDS ORDERED: PANTOPRAZOLE SODIUM 40 MG in NORMAL SALINE 100 ML IV SCH (18:30)
[2020-08-23] MEDS: ONDANSETRON HCL/PF 2 MG/ML VIAL IV PRN (18:48)
[2020-08-23] MEDS: MORPHINE SULFATE 2 MG/ML DISP.SYRIN IV PRN (18:49)
[2020-08-23] MEDS: METOPROLOL TARTRATE 1 MG/ML AMPUL IV SCH (18:49)
[2020-08-23] MEDS ORDERED: LEVOFLOXACIN IN DEXTROSE 5 % 750 MG/150 ML BAG IV SCH (19:00)
[2020-08-24] MEDS: MORPHINE SULFATE 2 MG/ML DISP.SYRIN IV PRN ×3 (00:15→14:28)
[2020-08-24] MEDS: ONDANSETRON HCL/PF 2 MG/ML VIAL IV PRN (01:59)
[2020-08-24] MEDS: METOPROLOL TARTRATE 1 MG/ML AMPUL IV SCH (07:19)
[2020-08-24 07:38] LABS: Hematocrit 39.4 % (42.0-52.0); Hemoglobin 12.7 gm/dL (13.5-18.0); Mean Cell Volume 91.8 fl (78-100); Mean Corpuscular Hemoglobin 29.6 pg (27-31); Mean Corpuscular Hgb Conc 32.2 g/dl (32-36); Mean Platelet Volume 8.5 fl (8-11.3); Neutrophil # 6.3 K/mm3 (1.3-6.0); Neutrophil % 68.1 % (42-75.0); Platelet Count 388 K/mm3 (150-450); Red Blood Count 4.29 M/mm3 (4.7-6.0); Red Cell Distribution Width 12.3 % (11.5-14.0); White Blood Count 9.3 K/mm3 (4.0-10.5)
[2020-08-24 07:42] LABS: Anion Gap 14.4 mmol/L (6.8-13.8); BUN/Creatinine Ratio 6.9 (9.0-21.6); Calcium * 8.9 mg/dL (7.9-10.9); Carbon Dioxide 25.3 mmol/L (24-32.6); Estimated Creat Clear 68.4; Potassium 3.7 mmol/L (3.4-4.6)
--- NOTE | 2020-08-24 07:59 | DS ---
(1) Vomiting Problem: Resolved Qualifiers: Vomiting type: unspecified Vomiting Intractability: intractable Nausea presence: with nausea Qualified Code(s): R11.2 - Nausea with vomiting, unspecified (2) GERD (gastroesophageal reflux disease) Problem: Chronic Qualifiers: Esophagitis presence: with esophagitis (3) Hypertension Problem: Acute Qualifiers: Hypertension type: essential hypertension Qualified Code(s): I10 - Essential (primary) hypertension (4) Status post left hip replacement Problem: Acute (5) Obstructive sleep apnea Problem: Chronic (6) Postoperative stitch abscess Problem: Acute Date of Discharge:: 08/24/20 Hospital Course: Misael Looney is a 60-year-old white male with past medical history of hypertension, obstructive sleep apnea, recent total left hip replacement 08/20/2020 who was admitted on 08/23/2020 because of lower abdominal pain associated with nausea and vomiting. This started early this morning of admission and he has not been able to take any of his medications. He has fatigue and chills and had recent hip replacement and developed a subcutaneous stitch abscess which was surgically debrided and irrigated. It grew Staph Aureus, MSSA. Orthopedics saw patient in the emergency room and does not think his nausea and vomiting is secondary to his infection. He has been taking Bactrim for this. In the emergency room his blood work showed he had a WBC count of 12, hemoglobin of 14.9, platelet of 485, electrolytes within normal limits, BUN/creatinine ratio ratio of 8.2, GFR 57 with a creatinine 1.34, liver function test within normal limits. His chest x- ray showed no consolidation question of bronchitis. His abdominal x-ray showed negative study. His abdominal CT scan showed no acute or active abdominal or pelvic processes, mild diffuse hepatic steatosis with indeterminate hypodense lesion in the right lobe of the liver likely a small cyst or hemangioma, colonic diverticulosis without diverticulitis small hiatal hernia with mild thickening of the distal esophagus likely a sequela of chronic reflux esophagitis. Initially the patient did not want to be admitted but before he was discharged from the emergency room he took 4 ounces of water and started vomiting about 100 mL of bilious material. He was then admitted for observation and further evaluation and treatment. He was continued on IV fluids and kept n.p.o. We started him on IV Protonix, IV Zofran as needed. We gave him IV labetalol and IV Lopressor for his elevated blood pressures. This morning patient started cleared then to full liquids and then to soft diet. He tolerated regular diet at lunchtime. He is stable to be discharged today. We will hold his famotidine and put him on Protonix for 4 weeks and then he can go back to his famotidine. He will follow-up with his primary care physician. Procedures Performed: none Results and Findings: Lab Pending Results 08/23/20 09:59: WBC 12.0 H, RBC 4.96, Hgb 14.9, Hct 44.8, MCV 90.3, MCH 30.0, MCHC 33.3, RDW 12.1, Plt Count 485 H, MPV 8.8, Immature Gran % (Auto) 1.10 H, Immature Gran # (Auto) 0.13 H, Neutrophils % 80.5 H, Lymphocytes % 13.1 L, Monocytes % 4.2, Eosinophils % 0.7, Basophils % 0.4, Nucleated RBC % 0.0, Neutrophils # 9.7 H, Lymphocytes # 1.58, Monocytes # 0.5, Eosinophils # 0.1, Absolute Basophils 0.1 08/23/20 10:14: Sodium 141, Plasma Sodium 142, Potassium 3.8, Chloride 102, Carbon Dioxide 22.5 L, Anion Gap 20.3 H, BUN 11, Creatinine 1.34, Est GFR (Non- Af Amer) 57 L D, BUN/Creatinine Ratio 8.2 L, Random Glucose 167 H, Calcium 9.9, Calcium Adj for Albumin 9.3, Total Bilirubin 0.4, AST 20, ALT 32, Alkaline Phosphatase 134, Troponin I Less than 0.017, C-Reactive Prot, Quant 1.2 H, Total Protein 8.5 H, Albumin 4.4, Amylase 38, Lipase 111 08/23/20 10:14: Lactic Acid, Venous 2.4 H* 08/23/20 12:54: Urine Color Yellow, Urine Appearance Slightly cloudy, Urine pH 7.0, Ur Specific [place] 1.020, Urine Protein 15 H, Urine Glucose (UA) Negative, Urine Ketones 50, Urine Blood Negative, Urine Nitrate Negative, Urine Bilirubin 1 H, Urine Urobilinogen Normal, Ur Leukocyte Esterase Negative, Urine RBC None seen, Urine WBC 0-5, Ur Epithelial Cells 0-5, Urine Bacteria 1+ H, Fine Granular Casts 0-5 H, Urine Mucus Few - 1+ H, Urine Culture Comments No culture indicated 08/23/20 13:00: Lactic Acid, Venous 1.8 08/23/20 15:45: SARS-CoV-2 (PCR) Not detected 08/24/20 07:27: WBC 9.3 D, RBC 4.29 L, Hgb 12.7 L, Hct 39.4 L, MCV 91.8, MCH 29.6, MCHC 32.2, RDW 12.3, Plt Count 388, MPV 8.5, Immature Gran % (Auto) 0.60 H, Immature Gran # (Auto) 0.06 H, Neutrophils % 68.1, Lymphocytes % 21.5, Monocytes % 8.0, Eosinophils % 1.4, Basophils % 0.4, Nucleated RBC % 0.0, Neutrophils # 6.3 H, Lymphocytes # 1.99, Monocytes # 0.7, Eosinophils # 0.1, Absolute Basophils 0.0 08/24/20 07:27: Sodium 141, Plasma Sodium 141, Potassium 3.7, Chloride 105, Carbon Dioxide 25.3, Anion Gap 14.4 H, BUN 7, Creatinine 1.01, Est GFR (Non-Af Amer) 80 D, BUN/Creatinine Ratio 6.9 L, Random Glucose 111 H D, Calcium 8.9 Discharge Location: Home Disposition: Home self-care Condition: Stable Discharge Activity: Activity as tolerated Discharge Diet: Low salt Referrals: Geeta Boothe MD [Primary Care Provider] - Additional Patient Instructions (free text): Follow-up with his PCP in 1 week. Prescriptions (Any new or edited meds): Levofloxacin [Levaquin] 500 mg PO DAILY #10 tab Transmission Status: Pending to [facility] Metoprolol Tartrate [Lopressor] 25 mg PO BID #60 tab Transmission Status: Pending to [facility] Pantoprazole Sodium [Protonix] 40 mg PO DAILY #30 tablet.dr Transmission Status: Pending to [facility] Complete Home Medications List: Complete Home Medication List: acetaminophen 325 mg tablet 650 mg PO Q6H PRN tab 05/15/20 Aspirin 325 mg PO DAILY 07/30/20 hydrocodone 5 mg-acetaminophen 325 mg tablet 1 - 2 tab PO Q8H PRN #40 tab 08/21/20 promethazine 12.5 mg tablet 12.5 mg PO Q4H PRN #20 tab 08/23/20 Levofloxacin [Levaquin] 500 mg PO DAILY #10 tab 08/24/20 Metoprolol Tartrate [Lopressor] 25 mg PO BID #60 tab 08/24/20 Pantoprazole Sodium [Protonix] 40 mg PO DAILY #30 tablet. 08/24/20 Forms: Patient Portal Registration
[2020-08-24] MEDS ORDERED: METOPROLOL TARTRATE 25 MG TABLET PO SCH (09:00)
[2020-08-24 14:43] VITALS: BP 156/76
== END 2020-08-24 14:55 | disposition home or self-care (01) ==
LOC: ER 09:49 → MS 09:49
PROVIDERS: ADMIT Internal Medicine; ATTEND Internal Medicine